=== PATIENT | female | born 2000 | race Caucasian/White ===

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

== ENCOUNTER → 2020-03-10 | Outpatient (CLI) | payer OTHER ==
--- NOTE | 2020-03-10 13:27 | US ---
EXAMINATION TYPE: Transabdominal DATE OF EXAM: 03/10/2020 12:33 PM COMPARISON: NONE CLINICAL HISTORY: Z36 confirmed dates. EXAM PERFORMED: Transabdominal (TA) EXAM MEASUREMENTS: GESTATIONAL AGE / DATING Physician Established: Not yet established Dates by LMP: (10 weeks/0 days) EDC: 10/06/2020 Dates by First Scan: No previous this is first scan Dates by Current Scan for: ( 9 weeks/3 days) EDC: 10/10/2019 MATERNAL ANATOMY Uterus: 11.3 x 5.1 x 7.5 cm Right Ovary: 2.8 x 1.9 x 1.4 cm Left Ovary: 2.6 x 2.1 x 1.3 cm Post CDS / Adnexa: wnl Presence of free fluid: No Presence of corpus luteal cyst: No Presence of subchorionic bleed: No GESTATION / SURVEY CRL: 2.5cm (9 weeks/3 days) Yolk Sac (normal less than 6mm): 3mm Heart Rate: 167 bpm Rhythm: Normal IUP: Viable IUP Date of LMP: 12/31/2019 Viable IUP, measurement consistent with dates. IMPRESSION: Viable intrauterine measuring approximately 9 weeks and 3 days with a heart rate of 167 bp m.
== END | disposition home or self-care (01) ==
LOC: RADUSWWP 12:17
PROVIDERS: ATTEND Obstetrics & Gynecology
DX: Z3A.09 9 weeks gestation of pregnancy (principal)
CPT/HCPCS: 76801

== ENCOUNTER 2020-08-17 16:14 | Outpatient (CLI) | payer OTHER ==
--- NOTE | 2020-08-17 17:55 | US ---
EXAMINATION TYPE: US OB BPP wo non-stress DATE OF EXAM: 08/17/2020 COMPARISON: US CLINICAL HISTORY: non reactive non stress test. Low Kennedy in physician's office today EXAM PERFORMED: Transabdominal (TA) BPP PARAMETERS: PRESENTATION: Vertex LIE: Longitudinal?? HEART RATE: 143 bpm RHYTHM: Normal KENNEDY: 12.9cm DIAPHRAGM IMAGED: yes BPP SCORIN. Breathin (1 episode of breathing of 30 second duration in 30 minutes of scanning time) 2. Movement: 2 (at least 3 discrete body movements in 30 minutes) 3. Tone: 2 (1 episode of active flexion/extension of limb) 4. KENNEDY: 2 (KENNEDY index > 5cm) TOTAL SCORE: 8 / 8
--- NOTE | 2020-08-25 18:43 | P.MSEPDOC ---
Presenting Problems - Arrival Data Date of Arrival on Unit: 08/17/20 Time of Arrival on Unit: 16:14 Mode of Transport: Portable Physician Notification (Pre) - Physician Notified Spoke With: cameron Denny Order Received: Yes - Notification Comment Comment: discharge home. to go to office [facility] for repeat nst with dr delaney. do kick counts daily per order and notify dr if any untoward events. verb underst. Disposition - Disposition Discharge Date: 08/17/20 Discharge Time: 18:15 I agree with the RN Medical Screening Exam: No Physician's MSE Comment: MSE not filled out. Risk & Benefit of care provided described in d/c instruction: No Diagnosis: RELATED CONDITIONS, UNSPECIFIED, THIRD TRIMESTER (Patient was sent to labor and delivery by Dr. Delaney for a nonreactive nonstress test in the office. Patient was getting a nonstress test due to a low normal KENNEDY and decreased growth. Dr. Armas requested patient, to labor and delivery for prolonged monitoring and biophysical profile. Biophysical profile is 8 out of 8. heart tones did not show any evidence of decelerations or concerning features. I did talk to the patient she states she is feeling movement and I instructed her once again in movement. Patient was felt to be stable for discharge home follow up with Dr. Armas for a nonstress test the office in 3 days. She was given strict instructions to return if she had any decreased movement or other symptomatology. )
== END 2020-08-17 18:15 | disposition home or self-care (01) ==
LOC: FBPOP 16:14
PROVIDERS: ATTEND Obstetrics & Gynecology
DX: O26.93 Pregnancy related conditions, unspecified, third trimester (principal); Z3A.00 Weeks of gestation of pregnancy not specified
CPT/HCPCS: 59025; 76819; G0463; 99213

== ENCOUNTER 2020-08-20 10:46 | Outpatient (CLI) | payer OTHER ==
--- NOTE | 2020-08-20 12:18 | US ---
EXAMINATION TYPE: US OB BPP wo non-stress DATE OF EXAM: 08/20/2020 COMPARISON: US CLINICAL HISTORY: nonreactive nst. Patient stated just had this test in [facility] office today.; ; E DD10/06/2020, 33weeks/2 days. EXAM PERFORMED: Transabdominal (TA) BPP PARAMETERS: PRESENTATION: cephalic LIE: long?? HEART RATE: 138 bpm RHYTHM: normal KENNEDY: 12.3 DIAPHRAGM IMAGED: yes, seen BPP SCORIN. Breathin (1 episode of breathing of 30 second duration in 30 minutes of scanning time) 2. Movement: 2 (at least 3 discrete body movements in 30 minutes) 3. Tone: 2 (1 episode of active flexion/extension of limb) 4. KENNEDY: 2 (KENNEDY index > 5cm) TOTAL SCORE: 8 / 8 US tech findings reported to patient's RN, Jeniffer, at exam's end. IMPRESSIONS: 1. Normal biophysical profile scoring 8/8 points. Cardiac activity measures 138 bpm was observed duri ng the study.
--- NOTE | 2020-09-16 09:41 | P.MSEPDOC ---
Presenting Problems - Arrival Data Date of Arrival on Unit: 08/20/20 Time of Arrival on Unit: 10:46 Mode of Transport: Portable Disposition - Disposition Discharge Date: 08/20/20 Discharge Time: 13:04 I agree with the RN Medical Screening Exam: Yes Risk & Benefit of care provided described in d/c instruction: Yes Diagnosis: RELATED CONDITIONS, UNSPECIFIED, THIRD TRIMESTER (IUGR with non-reactive nst)
== END 2020-08-20 13:16 | disposition home or self-care (01) ==
LOC: FBPOP 10:46
PROVIDERS: ATTEND Obstetrics & Gynecology
DX: O26.893 Other specified pregnancy related conditions, third trimester (principal)
CPT/HCPCS: 59025; 76819

== ENCOUNTER 2020-08-27 15:50 | Outpatient (CLI) | payer OTHER ==
[2020-08-27 16:27] VITALS: BP 113/73; PULSE 96; RESP 16
--- NOTE | 2020-08-28 06:15 | P.MSEPDOC ---
Presenting Problems - Arrival Data Date of Arrival on Unit: 08/27/20 Time of Arrival on Unit: 15:50 Mode of Transport: Ambulatory - Complaint OB-Reason for Admission/Chief Complaint: NST Medical History - Information : 2 Para: 1 Term: 0 : 0 Abortions: Spontaneous or Elective: 0 Number of Living Children: 0 - Gestational Age Gestational Age by TOD (wks/days): 34 Weeks and 2 Days - History Complications: Other Comment: IUGR Review of Systems - Review of Systems Constitutional: No problems Breast: No problems ENT: No problems Cardiovascular: No problems Respiratory: No problems Gastrointestinal: No problems Genitourinary: No problems Musculoskeletal: No problems Neurological: No problems Skin: No problems Vital Signs - Pulse Right Pulse Rate: 96 Pulse Assessment Method: Automatic Cuff - Respirations Respiratory Rate: 16 Oxygen Delivery Method: Room Air O2 Sat by Pulse Oximetry: 98 - Blood Pressure Right Arm Blood Pressure: 113/73 Blood Pressure Mean: 86 Blood Pressure Source: Automatic Cuff Medical Screen Scoring (Pre) - Cervical Exam Dilation: Exam Deferred Effacement: Exam Deferred - Uterine Contractions Frequency: N/A Duration: N/A Intensity: N/A - Maternal Vital Signs Maternal Temperature: N/A Maternal Blood Pressure: N/A Signs of Preeclampsia: N/A Maternal Respirations: N/A - Maternal Trauma Maternal Trauma: N/A - Assessment - Baby A Baseline FHR: 150 Heart Rate - NICHD Category: Category I (Normal) = 0 NST: Reactive Position: N/A Station: N/A - Total Score - Baby A Total Score - Baby A: 0 - Total Score - Baby B Total Score - Baby B: 0 - Total Score - Baby C Total Score - Baby C: 0 - Level of Risk - Baby A Level of Risk - Baby A: Low (0-5) - Level of Risk - Baby B Level of Risk - Baby B: Low (0-5) - Level of Risk - Baby C Level of Risk - Baby C: Low (0-5) Physician Notification (Pre) - Physician Notified Physician Notified Date: 08/27/20 Physician Notified Time: 16:19 New Order Received: Yes - Notification Comment Comment: If NST is reactive and there are no concerns, pt may DC home Disposition - Disposition OB Disposition: Discharge to home Discharge Date: 08/27/20 Discharge Time: 16:40 I agree with the RN Medical Screening Exam: Yes Risk & Benefit of care provided described in d/c instruction: Yes Diagnosis: ENCTR FOR SCREENING FOR GROWTH RETARDATION
== END 2020-08-27 16:40 | disposition home or self-care (01) ==
LOC: FBPOP 15:50
PROVIDERS: ATTEND Obstetrics & Gynecology
DX: Z36.4 Encounter for antenatal screening for fetal growth retardation (principal); Z3A.34 34 weeks gestation of pregnancy
CPT/HCPCS: 59025

== ENCOUNTER 2020-09-06 15:52 | Outpatient (CLI) | payer OTHER ==
--- NOTE | 2020-09-06 16:55 | P.PN ---
Progress Note - Text Progress Note Date: 09/06/20 Patient was sent over from the office due to nonreactive NST. In labor and delivery her NST became reactive following monitoring and a biophysical profile was also 8 out of 8. She will be discharged home in stable condition. She has an appointment on 09/10/2020 with maternal- medicine. She is scheduled for induction next and will see me on Sunday for exam.
--- NOTE | 2020-09-06 19:17 | US ---
EXAMINATION TYPE: US OB BPP wo non-stress DATE OF EXAM: 09/06/2020 COMPARISON: NONE CLINICAL HISTORY: DECREASED MOVEMENT. failed non stress test at office EXAM PERFORMED: Transabdominal (TA) BPP PARAMETERS: PRESENTATION: Vertex LIE: Longitudinal?? HEART RATE: 149 bpm RHYTHM: Normal KENNEDY: 14.1cm DIAPHRAGM IMAGED: yes BPP SCORIN. Breathin (1 episode of breathing of 30 second duration in 30 minutes of scanning time) 2. Movement: 2 (at least 3 discrete body movements in 30 minutes) 3. Tone: 2 (1 episode of active flexion/extension of limb) 4. KENNEDY: 2 (KENNEDY index > 5cm) TOTAL SCORE: 8 / 8 Impression Normal exam. Biophysical profile score is 8.
== END 2020-09-06 16:55 | disposition home or self-care (01) ==
LOC: FBPOP 15:52
PROVIDERS: ATTEND Obstetrics & Gynecology
DX: O36.8130 Decreased fetal movements, third trimester, not applicable or unspecified (principal)
CPT/HCPCS: 59025; 76819

== ENCOUNTER 2020-09-14 16:04 | Inpatient (IN) | payer OTHER ==
--- NOTE | 2020-08-20 13:35 | P.PN ---
Progress Note - Text Progress Note Date: 08/20/20 Was sent over to labor and delivery from my office for nonreactive NST. We have been concerned over last week due to an ultrasound showing possible small for gestational age versus IUGR baby. NST and biophysical profile were okay on Sunday following a nonreactive NST my office. However again this morning her NST was nonreactive this was sent over to labor and delivery. In labor and delivery she has a reassuring but not reactive NST with biophysical profile of 8 out of 8 again. This said, I spoke with maternal- medicine and after discussing her case with the specialist, we have opted to have her go see them today. My concern predominantly is that her last ultrasound showed possible IUGR and with 2 straight nonreactive NSTs even with normal biophysical profiles I believe she needs further workup to verify that there is nothing else concerning going on with the . As she is only 33 weeks she would need to be delivered at a high risk Center should that be required anyway. We'll follow the recommendations moving forward. I did personally evaluate Charlotte in L&D and discuss her care with she and her partner with all questions being asked prior to d/c
[2020-09-14] MEDS ORDERED: DINOPROSTONE 10 MG INSERT.ER VAGINAL ONE (16:08)
[2020-09-14] MEDS ORDERED: BUTORPHANOL 1 MG/ML 1 ML VIAL IV PRN (16:49)
[2020-09-14] MEDS ORDERED: ZOLPIDEM 5 MG TAB PO PRN (16:49)
--- NOTE | 2020-09-14 16:56 | P.HPOB ---
History of Present Illness H&P Date: 09/14/20 Chief Complaint: Intrauterine at term: IUGR Charlotte is a 20-year-old at 37 weeks gestation who arrives for induction of labor. Her Precis course has been, complicated by intrauterine growth restriction for which she is been seen and comanagement with maternal- medicine. She's had twice weekly nonstress tests and biophysical profiles throughout the latter port of the and we have monitored very closely. Her last ultrasound had the baby in the first or 2nd percentile. Much of the problem however is femur length so it is going to be a question as to whether or not this is truly IUGR there is some other anatomical issue with the baby. We have seen her very closely since 8 weeks gestation she is had very close care otherwise. She's had multiple ultrasounds and good dates noted by early ultrasound. Pertinent labs do include A+ blood type, Rh antibody was negative, rubella is immune, hepatitis B surface antigen and RPR both negative group B strep is however positive. Risks of Cervidil ripening were discussed with the patient and her significant other including but not limited to potential emergency room with tachysystole and possible need for urgent or emergent section. She is also aware that should this not work we will need to discuss what alternatives we have moving forward to getting her delivered. She does have a narrow pubic arch so I do have some concerns over her ability to deliver vaginally anyway, but with baby in the percentile we would expect that she would still be able to hopefully deliver vaginally. A category 1 tracing is noted and exam was performed with her cervix noted to be fingertip 50% effaced - 3 station with the cervix being very posterior. Past Medical History Past Medical History: No Reported History Additional Past Medical History / Comment(s): Anemia History of Any Multi-Drug Resistant Organisms: None Reported Past Surgical History: No Surgical Hx Reported Smoking Status: Former smoker Medications and Allergies Home Medications Medication Instructions Recorded Confirmed Type Pnv No.95/Ferrous Fum/Folic AC 1 tab PO DAILY 08/17/20 09/14/20 History [ Multivitamin Tablet] Allergies Allergy/AdvReac Type Severity Reaction Status Date / Time kiwi Allergy Unknown Verified 09/06/20 16:07 Exam Osteopathic Statement: *. No significant issues noted on an osteopathic structural exam other than those noted in the History and Physical/Consult. Intake and Output 09/14/20 09/14/20 09/14/20 06:59 14:59 22:59 Other: Weight 81.647 kg - OBG Physical Exam Breast: both: normal (no masses) Abdomen: bowel sounds normal, no diffuse tenderness, no bruit present, no guarding noted, no hepatomegaly, no splenomegaly, no mass Vulva: both: normal Vagina: normal moisture, no discharge Cervix: no lesion, no discharge Uterus: normal size, normal contour Adnexa: both: normal Anus/Rectum: normal perianal skin, no rectal mass, no hemorrhoids, heme negative
[2020-09-15] MEDS ORDERED: TERBUTALINE 1 MG/ML VIAL SQ PRN (05:01)
[2020-09-15] MEDS ORDERED: CARBOPROST TROMETHAMINE 250 MCG/ML 1 ML AMP IM PRN (05:01)
[2020-09-15] MEDS ORDERED: AMPICILLIN 2,000 MG in SODIUM CHLORIDE 0.9% 100 ML IVPB STA (05:01)
[2020-09-15] MEDS ORDERED: OXYTOCIN 10 UNIT/ML 1 ML VIAL IM PRN (05:01)
[2020-09-15] MEDS ORDERED: LIDOCAINE 0.5% (PF) 5 MG/ML (50 ML SDV) SQ PRN (05:01)
[2020-09-15] MEDS ORDERED: METHYLERGONOVINE 0.2 MG/ML 1 ML AMP IM PRN (05:01)
[2020-09-15] MEDS ORDERED: OXYTOCIN 30 UNITS/500 ML NS 30 UNIT in SALINE 1 500ML.BAG IV SCH (05:15)
[2020-09-15] MEDS: LACTATED RINGERS 1,000 ML IV SCH ×2 (05:18→18:48)
[2020-09-15 05:42] LABS: Basophils % (A) 0 %; Eosinophils # (A) 0.1 k/uL (0-0.7); Eosinophils % (A) 1 %; HCT 39.5 % (34.0-46.0); HGB 13.7 gm/dL (11.4-16.0); Lymphocytes # (A) 1.2 k/uL (1.0-4.8); Lymphocytes % (A) 11 %; MCH 31.9 pg (25.0-35.0); MCHC 34.7 g/dL (31.0-37.0); MCV 91.9 fL (80.0-100.0); Mean Platelet Volume 7.5; Monocytes # (A) 0.5 k/uL (0-1.0); Monocytes % (A) 4 %; Neutrophils # (A) 9.2 k/uL (1.3-7.7); Neutrophils % (A) 82 %; Platelet Count 228 k/uL (150-450); RBC 4.29 m/uL (3.80-5.40); RDW 12.6 % (11.5-15.5); WBC 11.2 k/uL (3.8-10.6)
[2020-09-15] MEDS ORDERED: ROPIVACAINE 5MG/ML 20ML VIAL ONE (06:59)
[2020-09-15] MEDS ORDERED: fentaNYL (PF) 50 MCG/ML 5 ML AMP ONE (06:59)
[2020-09-15] MEDS ORDERED: SODIUM CHLORIDE 0.9% 100 ML BAG ONE (06:59)
[2020-09-15] MEDS ORDERED: ROPIVACAINE 100 MG, fentaNYL (PF) 200 MCG in SODIUM CHLORIDE 0.9% 76 ML EPIDURAL ONE (07:24)
[2020-09-15] MEDS ORDERED: MIDAZOLAM 2 MG/2 ML VIAL ONE (08:30)
[2020-09-15] MEDS ORDERED: fentaNYL (PF) 50 MCG/ML 2 ML AMP ONE (08:30)
[2020-09-15] MEDS ORDERED: PROPOFOL 10 MG/ML 20 ML VIAL IV ONE (08:30)
[2020-09-15] MEDS ORDERED: AMPICILLIN 1,000 MG in SODIUM CHLORIDE 0.9% 50 ML IVPB SCH (09:01)
--- NOTE | 2020-09-15 09:09 | P.PROBDLV ---
Vaginal Delivery Note - . Vaginal Delivery Note: Patient progressed complete and pushing with vacuum assisted vaginal delivery of a viable male over an intact perineum. During the pushing process and slightly before the pushing process the baby's heart tones were dropping into the 50s and staying between 50s and 60s for long segments of time between some of contractions heart rate would return but it was going above the baseline into the 150s and 160s due to her epidural and due to the fact she did not have baby before and her pushing while effective was not bring the baby down quick enough after a discussion of risks that was somewhat truncated due to heart rate being again in the 40s to 50s at that point we did apply vacuum it was pumped up to the minimum green and was placed in the occipital posterior area on the top of the head and with gentle traction real bring the baby down to the perineum on the first hole there was one pop off at that point we've been following for less than 20 seconds. Packing was reapplied and in less than 7 seconds with her next contraction and pushing the baby was delivered immediately the baby began to cry bulb suction mouth and nares was performed and there was good vigorous tone. Baby was placed mother's abdomen and the umbilical cord was allowed to pulsate for 60 seconds prior to clamping and cutting. Once this was completed nursery personnel was present and assumed care. Placenta was then delivered intact. Pitocin was added to the IV. A bilateral vaginal wall periurethral left avulsion's were note despite this we're noting a significant amount of blood and so a more thorough exam was done and there was a large 6 cm long by 2 cm deep laceration starting from the right lateral wall moving all the way back to just anterior to the cervix. Attempt to repair this laceration. Bedside was done but it was simply too deep to get to the apex of the laceration therefore she was taken to the operating room with an epidural for analgesia and the repair was effected. Please see that dictation separately. scores were 9 and 9 at one and 5 minutes F[place] and the weight was 4 pounds 5.7 ounces. It was taken to nursery due to small size and not holding temperatures well
--- NOTE | 2020-09-15 09:11 | P.OP ---
Date of Procedure: 09/15/20 Preoperative Diagnosis: Vaginal wall laceration following delivery Postoperative Diagnosis: Same Procedure(s) Performed: Exam under anesthesia with repair of laceration Anesthesia: epidural Surgeon: Lauri Delaney Estimated Blood Loss (ml): 20 Pathology: none sent Condition: stable Disposition: floor Description of Procedure: Patient was taken to the operating suite where the vaginal packing from the room was removed and she was prepped and draped in normal sterile fashion. Using a 90 angle to retract the left vaginal sidewall and we were able to with gentle palpation fine apex of the laceration and grasped with an Allis clamp. Allis clamp was also rest on the right side of the laceration and once this was accomplished 3-0 Vicryl was used to close the laceration in running locking fashion. Once the laceration of approximately 3 inches long by 1 inch deep was repaired bleeding was noted to be minimal at this point despite having relatively heavy bleeding prior to repair. Skin was then reapproximated in that area with 3-0 Vicryl subcuticularly. Once this was completed all incidents removed. Sponge, lap, needle counts were all correct 2. Patient was then taken to the recovery room in stable and satisfactory condition.
[2020-09-15 10:08] VITALS: RESP 16
[2020-09-15] MEDS ORDERED: HYDROCORTISONE 2.5% RECTAL CREAM 30 GM TUBE RECTAL PRN (10:15)
[2020-09-15] MEDS ORDERED: diphenhydrAMINE 25 MG CAP PO PRN (10:15)
[2020-09-15] MEDS ORDERED: LANOLIN CREAM 5 GM TUBE TOPICAL PRN (10:15)
[2020-09-15] MEDS ORDERED: SIMETHICONE 80 MG CHEWABLE PO PRN (10:15)
[2020-09-15] MEDS ORDERED: OXYTOCIN 20 UNITS/1000 ML NS 1,000 ML IV SCH (10:15)
[2020-09-15] MEDS ORDERED: ZOLPIDEM 5 MG TAB PO PRN (10:15)
[2020-09-15] MEDS ORDERED: diphenhydrAMINE 50 MG CAP PO PRN (10:15)
[2020-09-15] MEDS ORDERED: BENZOCAINE/MENTHOL SPRAY 1 GM/SPRAY AEROSOL TOPICAL PRN (10:15)
[2020-09-15] MEDS ORDERED: diphenhydrAMINE 50 MG/ML 1 ML VIAL IVP PRN ×2 (10:15)
[2020-09-15] MEDS: IBUPROFEN 600 MG TAB PO PRN ×2 (12:34→18:19)
[2020-09-15] MEDS: SENNOSIDES-DOCUSATE SODIUM 1 EACH TAB PO SCH (19:30)
[2020-09-16] MEDS: IBUPROFEN 600 MG TAB PO PRN ×4 (00:37→23:19)
[2020-09-16 06:06] LABS: Basophils % (A) 0 %; Eosinophils # (A) 0.2 k/uL (0-0.7); Eosinophils % (A) 2 %; HCT 31.3 % (34.0-46.0); Lymphocytes # (A) 2.7 k/uL (1.0-4.8); Lymphocytes % (A) 25 %; MCH 30.9 pg (25.0-35.0); MCHC 33.5 g/dL (31.0-37.0); MCV 92.1 fL (80.0-100.0); Mean Platelet Volume 7.6; Monocytes # (A) 0.6 k/uL (0-1.0); Monocytes % (A) 5 %; Neutrophils # (A) 7.2 k/uL (1.3-7.7); Neutrophils % (A) 66 %; Platelet Count 225 k/uL (150-450); RDW 13.4 % (11.5-15.5); WBC 10.9 k/uL (3.8-10.6)
[2020-09-16 06:07] LABS: HGB 10.5 gm/dL (11.4-16.0)
[2020-09-16] MEDS: SENNOSIDES-DOCUSATE SODIUM 1 EACH TAB PO SCH ×2 (08:45→19:54)
--- NOTE | 2020-09-16 10:02 | P.PNOBGVD ---
Subjective - Subjective Principal diagnosis: day 1 Interval history: Overall doing well. She is sore in her buttock and vaginal area from the repair yesterday but otherwise she is doing well. She reports her lochia is light. Her appetite is good she is ambulating and voiding and otherwise voices no complaints. Patient reports: Reports appetite normal, Reports voiding normally, Reports pain well controlled, Reports ambulating normally [place]: in NICU Objective - Latest Vital Signs Latest vital signs: Vital Signs Temp Pulse Resp BP Pulse Ox 09/16/20 09:27 97.9 F 85 16 109/66 09/16/20 08:00 97.8 F 85 16 108/73 09/16/20 04:00 98.8 F 82 16 94/52 09/15/20 23:39 98.2 F 85 16 107/74 98 09/15/20 20:00 98.0 F 81 16 114/77 99 09/15/20 16:00 98.0 F 100 16 128/72 09/15/20 12:00 98.3 F 72 16 131/79 09/15/20 10:18 98.3 F 72 16 128/76 Intake and Output 09/15/20 09/16/20 09/16/20 22:59 06:59 14:59 Other: # Voids 2 2 1 # Bowel Movements 1 - Exam Lungs: bilateral: normal Chest: Normal S1, Normal S2 Extremities: Present: normal Abdomen: Present: normal appearance, soft Uterus: Present: normal, firm - Labs Labs: Abnormal Lab Results - Last 24 Hours (Table) 09/16/20 Range/Units 05:27 WBC 10.9 H (3.8-10.6) k/uL RBC 3.40 L (3.80-5.40) m/uL Hgb 10.5 L D (11.4-16.0) gm/dL Hct 31.3 L (34.0-46.0) %
[2020-09-16] MEDS: ACETAMINOPHEN TAB 325 MG TAB PO PRN ×2 (13:28→19:51)
[2020-09-17] MEDS: IBUPROFEN 600 MG TAB PO PRN (07:19)
[2020-09-17 08:35] VITALS: BP 108/65; PULSE 71; TEMP 98
--- NOTE | 2020-09-17 09:01 | P.DS ---
Providers Date of admission: 09/14/20 16:04 Expected date of discharge: 09/17/20 Attending physician: Lauri Delaney Primary care physician: [facility] Course: Charlotte is doing very well day 2. She is ambulating well. She is tolerating her diet, voicing no complaints and is having no problems with. Her vital signs are stable and she is afebrile. Baby is still in special care nursery but we will plan to discharge her to home today. Prescription for Motrin was forwarded to the pharmacy. All other questions are answered for her prior to her discharge. On physical exam heart is regular, lungs are clear, ext remities are without pain. Abdomen is soft uterus is firm and lochia is reported to be light. She is doing well otherwise overall. Discharge instructions were thoroughly reviewed and all questions were answered for her prior to proceeding with the discharge. Patient Condition at Discharge: Good Plan - Discharge Summary New Discharge Prescriptions: New Ibuprofen [Motrin] 600 mg PO Q6HR PRN #30 tab PRN Reason: Pain No Action Pnv No.95/Ferrous Fum/Folic AC [ Multivitamin Tablet] 1 tab PO DAILY Discharge Medication List Pnv No.95/Ferrous Fum/Folic AC [ Multivitamin Tablet] 1 tab PO DAILY 08/17/20 [History] Ibuprofen [Motrin] 600 mg PO Q6HR PRN #30 tab 09/17/20 [Rx] Follow up Appointment(s)/Referral(s): Lauri Delaney DO [Doctor of Osteopathic Medicine] - 6 Weeks Activity/Diet/Wound Care/Special Instructions: Ting, limit stairs and driving, and pelvic rest. If any high temperatures, heavy bleeding, or severe pain call my office Discharge Disposition: HOME SELF-CARE
[2020-09-17] MEDS: ACETAMINOPHEN TAB 325 MG TAB PO PRN (09:46)
== END 2020-09-17 13:20 | disposition home or self-care (01) | DRG 806 ==
LOC: 4FBP 16:04
PROVIDERS: ADMIT Obstetrics & Gynecology; ATTEND Obstetrics & Gynecology
DX: O36.5930 Maternal care for other known or suspected poor fetal growth, third trimester, not applicable or unspecified (principal); O71.4 Obstetric high vaginal laceration alone; Z37.0 Single live birth; O76 Abnormality in fetal heart rate and rhythm complicating labor and delivery; O71.82 Other specified trauma to perineum and vulva; O99.824 Streptococcus B carrier state complicating childbirth; Z87.891 Personal history of nicotine dependence; Z3A.37 37 weeks gestation of pregnancy; Z79.899 Other long term (current) drug therapy; Z86.2 Personal history of diseases of the blood and blood-forming organs and certain disorders involving the immune mechanism; Z91.018 Allergy to other foods
CPT/HCPCS: 85025; 86850; 86900; 86901

== ENCOUNTER 2020-12-13 15:02 | Emergency (ER) | payer OTHER ==
[2020-12-13 15:07] VITALS: RESP 18; TEMP 98.1
[2020-12-13 15:47] LABS: Bacteria,Urine Many /hpf; Budding Yeast,Urine Many /hpf; Mucus,Urine Many /hpf; RBC,Urine >182 /hpf (0-5); Squamous Epithelial Cell,Urine 16 /hpf (0-4); WBC,Urine >182 /hpf (0-5)
[2020-12-13 15:48] LABS: Appearance,Urine Bloody (Clear)
[2020-12-13 15:49] LABS: Color,Urine Red
--- NOTE | 2020-12-13 16:15 | ED ---
Female Urogenital HPI - General Chief complaint: Urogenital Stated complaint: UTI,Fever Time Seen by Provider: 12/13/20 15:11 Source: patient Limitations: no limitations - History of Present Illness Initial comments: Patient is a 20-year-old female presenting to the emergency Department with concerns of a UTI. Patient states she noticed hematuria, dysuria an increase in frequency since last week. She states she's had low-grade fevers throughout the week. She does admit to suprapubic pressure, discomfort. She denies any nausea or vomiting, no chest pain or shortness of breath. She states she's had no fevers today. She states she's had an issue with a UTI in October, it was cleared up and then symptoms returned last week. She denies being . She has no further complaints at this time. - Related Data Home Medications Medication Instructions Recorded Confirmed Acetaminophen Tab [Tylenol Tab] 1,000 mg PO Q6HR PRN 12/13/20 12/13/20 Previous Rx's Medication Instructions Recorded Sulfamethox-Tmp 800-160Mg [Bactrim 1 each PO Q12HR 5 Days #10 tab 12/13/20 Ds] Allergies Allergy/AdvReac Type Severity Reaction Status Date / Time cephalexin [From Keflex] Allergy Rash/Hives Verified 12/13/20 16:08 kiwi Allergy Unknown Verified 12/13/20 16:08 Review of Systems ROS Statement: Those systems with pertinent positive or pertinent negative responses have been documented in the HPI. ROS Other: All systems not noted in ROS Statement are negative. Past Medical History Past Medical History: No Reported History Additional Past Medical History / Comment(s): Anemia History of Any Multi-Drug Resistant Organisms: None Reported Past Surgical History: No Surgical Hx Reported Past Anesthesia/Blood Transfusion Reactions: No Reported Reaction Past Psychological History: No Psychological Hx Reported Smoking Status: Former smoker Past Alcohol Use History: Occasional Past Drug Use History: Marijuana - Past Family History Mother Family Medical History: No Reported History General Exam - General Exam Comments Initial Comments: GENERAL: Patient is well-developed and well-nourished. Patient is nontoxic and in no acute distress. HEAD: Atraumatic, normocephalic. EYES: Pupils equal round and reactive to light, extraocular movements intact, sclera anicteric, conjunctiva are normal. Eyelids were unremarkable. ENT: TMs normal, nares patent, oropharynx clear without exudates. Moist mucous membranes. NECK: Normal range of motion, supple without lymphadenopathy or JVD. LUNGS: Unlabored respirations. Breath sounds clear to auscultation bilaterally and equ al. No wheezes rales or rhonchi. HEART: Regular rate and rhythm without murmurs, rubs or gallops. ABDOMEN: Soft, tender to palpation suprapubic region, no other areas of pain, normoactive bowel sounds. No guarding, no rebound. No masses appreciated. : Deferred MUSCULOSKELETAL: Normal extremities with adequate strength and normal range of motion, no pitting or edema. No clubbing or cyanosis. NEUROLOGICAL: Patient is alert and oriented x 3. Motor and sensory are also intact. Cranial nerves II through XII grossly intact. Symmetrical smile. Normal speech, normal gait. PSYCH: Normal mood, normal affect. SKIN: Warm, Dry, normal turgor, no rashes or lesions noted. Limitations: no limitations Course Vital Signs 12/13/20 12/13/20 15:04 16:32 Temperature 98.1 F Pulse Rate 120 H 96 Respiratory 18 18 Rate Blood Pressure 113/70 123/74 O2 Sat by Pulse 99 98 Oximetry Medical Decision Making - Medical Decision Making Patient is a 20-year-old female here with UTI-type symptoms since last week. Hematuria, dysuria, frequency. Low-grade temperature over the past few days, she is afebrile here today. Urine is significant for hematuria, many wbc's and bacteria. Urine hCG is not detected. I will place her on Bactrim, as she has an ALLERGY to Keflex and states that she did not do well with Cipro in the past. Also recommended plenty of fluids, Pyridium for symptoms. She is in agreement with this plan of care, she is stable for discharge. Return parameters were discussed with the patient she verbalized understanding. Case discused with Dr. curtis. - Lab Data Lab Results 12/13/20 12/13/20 Range/Units 15:29 15:29 Urine Color Red Urine Appearance Bloody H (Clear) Urine RBC >182 H (0-5) /hpf Urine WBC >182 H (0-5) /hpf Ur Squamous Epith Cells 16 H (0-4) /hpf Urine Bacteria Many H (None) /hpf Urine Mucus Many H (None) /hpf Urine Yeast (Budding) Many H (None) /hpf Urine HCG, Qual Not Detected (Not Detectd) Disposition Clinical Impression: Urinary tract infection Disposition: HOME SELF-CARE Condition: Stable Instructions (If sedation given, give patient instructions): Urinary Tract Infection in Women (ED) Additional Instructions: Please return to the Emergency Department if symptoms worsen or any other concerns. Continue with oral antibiotics as prescribed. Be sure to drink plenty of water. May use peridium for discomfort. Follow-up with your regular doctor. Prescriptions: Sulfamethox-Tmp 800-160Mg [Bactrim Ds] 1 each PO Q12HR 5 Days #10 tab Is patient prescribed a controlled substance at d/c from ED?: No Referrals: Kathe Lam MD [Primary Care Provider] - 1-2 days
[2020-12-13 16:34] VITALS: BP 123/74; PULSE 96
== END 2020-12-13 16:36 | disposition home or self-care (01) ==
LOC: EC 15:02
DX: N39.0 Urinary tract infection, site not specified (principal); Z87.891 Personal history of nicotine dependence
CPT/HCPCS: 81025; 87086; 96374; 99283; 99285

== ENCOUNTER → 2021-03-31 | Outpatient (CLI) | payer OTHER ==
--- NOTE | 2021-03-31 15:15 | US ---
EXAMINATION TYPE: US kidneys/renal and bladder DATE OF EXAM: 03/31/2021 COMPARISON: NONE CLINICAL HISTORY: N39.0 Urinary Tract Infection. UTI EXAM MEASUREMENTS: Right Kidney: 8.8 x 3.5 x 4.0 cm Left Kidney: 9.5 x 3.9 x 3.4 cm Right Kidney: No hydronephrosis or renal calculi seen Left Kidney: No hydronephrosis or no calculi seen Bladder: wnl Bilateral Jets seen: Yes There is no evidence for hydronephrosis at this point in time. No nephrolithiasis is seen. The uri nary bladder is anechoic. Bilateral ureteral jets are seen. IMPRESSION: No evidence of hydronephrosis or renal calculi.
== END | disposition home or self-care (01) ==
LOC: RADUSWWP 14:27
PROVIDERS: ATTEND Internal Medicine
DX: N39.0 Urinary tract infection, site not specified (principal)
CPT/HCPCS: 76770

== ENCOUNTER 2021-05-27 03:04 | Emergency (ER) | payer OTHER ==
[2021-05-27 03:11] VITALS: RESP 20; TEMP 98.3
[2021-05-27 03:55] LABS: Basophils % (A) 0 %; Eosinophils # (A) 0.3 k/uL (0-0.7); Eosinophils % (A) 4 %; HGB 13.7 gm/dL (11.4-16.0); Lymphocytes # (A) 2.8 k/uL (1.0-4.8); Lymphocytes % (A) 36 %; MCH 29.5 pg (25.0-35.0); MCHC 33.5 g/dL (31.0-37.0); MCV 88.2 fL (80.0-100.0); Mean Platelet Volume 7.8; Monocytes # (A) 0.4 k/uL (0-1.0); Monocytes % (A) 5 %; Neutrophils # (A) 4.1 k/uL (1.3-7.7); Neutrophils % (A) 53 %; Platelet Count 252 k/uL (150-450); RBC 4.65 m/uL (3.80-5.40); RDW 12.9 % (11.5-15.5); WBC 7.9 k/uL (3.8-10.6)
[2021-05-27 04:02] LABS: Amorphous Sediment,Urine Rare /hpf; Appearance,Urine Turbid (Clear); Bacteria,Urine Few /hpf; Bilirubin,Urine Negative (Negative); Blood,Urine Large (Negative); Color,Urine Yellow; Glucose,Urine (UA) Negative (Negative); Ketones,Urine Negative (Negative); Leukocyte Esterase,Urine Large (Negative); Mucus,Urine Occasional /hpf; Nitrite,Urine Negative (Negative); PH, Urine 5.5 (5.0-8.0); Protein,Urine Trace (Negative); RBC,Urine 27 /hpf (0-5); Specific Gravity,Urine 1.024 (1.001-1.035); Squamous Epithelial Cell,Urine 21 /hpf (0-4); Urobilinogen,Urine <2.0 mg/dL (<2.0); WBC,Urine 13 /hpf (0-5)
[2021-05-27 04:12] LABS: ALT 12 U/L (4-34); AST 19 U/L (14-36); African American GFR (CKD) >90 (>60 ml/min/1.73 sqM); Albumin 4.6 g/dL (3.5-5.0); Alkaline Phosphatase 70 U/L (38-126); Amylase 58 U/L (30-110); Anion Gap 9 mmol/L; Blood Urea Nitrogen 17 mg/dL (7-17); C Reactive Protein 1.5 mg/dL (<1.0); Calcium 9.8 mg/dL (8.4-10.2); Carbon Dioxide 26 mmol/L (22-30); Chloride 101 mmol/L (98-107); Glucose 107 mg/dL (74-99); Lipase 79 U/L (23-300); Non-African American GFR(CKD) >90 (>60 ml/min/1.73 sqM); Potassium 3.9 mmol/L (3.5-5.1); Sodium 136 mmol/L (137-145); Total Bilirubin 0.3 mg/dL (0.2-1.3); Total Protein 7.7 g/dL (6.3-8.2)
--- NOTE | 2021-05-27 04:42 | ED ---
Abdominal Pain HPI - General Chief Complaint: Abdominal Pain Stated Complaint: Abd Pain Time Seen by Provider: 05/27/21 03:27 Source: patient Mode of arrival: ambulatory Limitations: no limitations - History of Present Illness MD Complaint: abdominal pain Onset/Timin -: days(s) Location: RLQ Radiation: none Migration to: no migration Severity: moderate Quality: aching Consistency: constant Improves With: nothing Worsens With: nothing Associated Symptoms: nausea - Related Data Home Medications Medication Instructions Recorded Confirmed Acetaminophen Tab [Tylenol Tab] 1,000 mg PO Q6HR PRN 12/13/20 12/13/20 Previous Rx's Medication Instructions Recorded Sulfamethox-Tmp 800-160Mg [Bactrim 1 each PO Q12HR 5 Days #10 tab 12/13/20 Ds] Sulfamethox-Tmp 800-160Mg [Bactrim 1 each PO Q12HR #10 tab 05/27/21 Ds] Allergies Allergy/AdvReac Type Severity Reaction Status Date / Time cephalexin [From Keflex] Allergy Rash/Hives Verified 05/27/21 03:11 kiwi Allergy Unknown Verified 05/27/21 03:11 Review of Systems ROS Statement: Those systems with pertinent positive or pertinent negative responses have been documented in the HPI. ROS Other: All systems not noted in ROS Statement are negative. Constitutional: Denies: fever, chills Respiratory: Denies: cough, dyspnea Cardiovascular: Denies: chest pain, palpitations Gastrointestinal: Reports: abdominal pain, nausea. Denies: vomiting, diarrhea, constipation Genitourinary: Denies: dysuria, frequency, hematuria, abnormal menses Musculoskeletal: Denies: back pain Skin: Denies: rash Neurological: Denies: headache Past Medical History Past Medical History: No Reported History Additional Past Medical History / Comment(s): Anemia History of Any Multi-Drug Resistant Organisms: None Reported Past Surgical History: No Surgical Hx Reported Past Anesthesia/Blood Transfusion Reactions: No Reported Reaction Past Psychological History: No Psychological Hx Reported Smoking Status: Former smoker Past Alcohol Use History: Occasional Past Drug Use History: Marijuana - Past Family History Mother Family Medical History: No Reported History General Exam Limitations: no limitations General appearance: alert, in no apparent distress Head exam: Present: atraumatic, normocephalic Eye exam: Present: normal appearance. Absent: scleral icterus, conjunctival injection Neck exam: Present: normal inspection Respiratory exam: Present: normal lung sounds bilaterally. Absent: respiratory distress, wheezes, rales, rhonchi, stridor Cardiovascular Exam: Present: regular rate, normal rhythm, normal heart sounds. Absent: systolic murmur, diastolic murmur, rubs, gallop GI/Abdominal exam: Present: soft. Absent: distended, tenderness, guarding, rebound, rigid, mass Extremities exam: Present: normal inspection, normal capillary refill. Absent: pedal edema, calf tenderness Back exam: Present: normal inspection. Absent: CVA tenderness (R), CVA tenderness (L) Neurological exam: Present: alert Skin exam: Present: warm, dry, intact, normal color. Absent: rash Course Vital Signs 05/27/21 05/27/21 05/27/21 03:06 04:11 05:33 Temperature 98.3 F Pulse Rate 73 57 L 64 Respiratory 20 20 20 Rate Blood Pressure 127/84 120/77 121/83 O2 Sat by Pulse 98 99 99 Oximetry Medical Decision Making - Lab Data Result diagrams: 05/27/21 03:41 05/27/21 03:41 Lab Results 05/27/21 05/27/21 05/27/21 Range/Units 03:41 03:41 03:41 WBC 7.9 (3.8-10.6) k/uL RBC 4.65 (3.80-5.40) m/uL Hgb 13.7 (11.4-16.0) gm/dL Hct 41.0 (34.0-46.0) % MCV 88.2 (80.0-100.0) fL MCH 29.5 (25.0-35.0) pg MCHC 33.5 (31.0-37.0) g/dL RDW 12.9 (11.5-15.5) % Plt Count 252 (150-450) k/uL MPV 7.8 Neutrophils % 53 % Lymphocytes % 36 % Monocytes % 5 % Eosinophils % 4 % Basophils % 0 % Neutrophils # 4.1 (1.3-7.7) k/uL Lymphocytes # 2.8 (1.0-4.8) k/uL Monocytes # 0.4 (0-1.0) k/uL Eosinophils # 0.3 (0-0.7) k/uL Basophils # 0.0 (0-0.2) k/uL Sodium 136 L (137-145) mmol/L Potassium 3.9 (3.5-5.1) mmol/L Chloride 101 (98-107) mmol/L Carbon Dioxide 26 (22-30) mmol/L Anion Gap 9 mmol/L BUN 17 (7-17) mg/dL Creatinine 0.78 (0.52-1.04) mg/dL Est GFR (CKD-EPI)AfAm >90 (>60 ml/min/1.73 sqM) Est GFR (CKD-EPI)NonAf >90 (>60 ml/min/1.73 sqM) Glucose 107 H (74-99) mg/dL Calcium 9.8 (8.4-10.2) mg/dL Total Bilirubin 0.3 (0.2-1.3) mg/dL AST 19 (14-36) U/L ALT 12 (4-34) U/L Alkaline Phosphatase 70 (38-126) U/L C-Reactive Protein 1.5 H (<1.0) mg/dL Total Protein 7.7 (6.3-8.2) g/dL Albumin 4.6 (3.5-5.0) g/dL Amylase 58 (30-110) U/L Lipase 79 (23-300) U/L Urine Color Yellow Urine Appearance Turbid H (Clear) Urine pH 5.5 (5.0-8.0) Ur Specific Gardiner 1.024 (1.001-1.035) Urine Protein Trace H (Negative) Urine Glucose (UA) Negative (Negative) Urine Ketones Negative (Negative) Urine Blood Large H (Negative) Urine Nitrite Negative (Negative) Urine Bilirubin Negative (Negative) Urine Urobilinogen <2.0 (<2.0) mg/dL Ur Leukocyte Esterase Large H (Negative) Urine RBC 27 H (0-5) /hpf Urine WBC 13 H (0-5) /hpf Ur Squamous Epith Cells 21 H (0-4) /hpf Amorphous Sediment Rare H (None) /hpf Urine Bacteria Few H (None) /hpf Urine Mucus Occasional H (None) /hpf Urine HCG, Qual (Not Detectd) 05/27/21 Range/Units 03:41 WBC (3.8-10.6) k/uL RBC (3.80-5.40) m/uL Hgb (11.4-16.0) gm/dL Hct (34.0-46.0) % MCV (80.0-100.0) fL MCH (25.0-35.0) pg MCHC (31.0-37.0) g/dL RDW (11.5-15.5) % Plt Count (150-450) k/uL MPV Neutrophils % % Lymphocytes % % Monocytes % % Eosinophils % % Basophils % % Neutrophils # (1.3-7.7) k/uL Lymphocytes # (1.0-4.8) k/uL Monocytes # (0-1.0) k/uL Eosinophils # (0-0.7) k/uL Basophils # (0-0.2) k/uL Sodium (137-145) mmol/L Potassium (3.5-5.1) mmol/L Chloride (98-107) mmol/L Carbon Dioxide (22-30) mmol/L Anion Gap mmol/L BUN (7-17) mg/dL Creatinine (0.52-1.04) mg/dL Est GFR (CKD-EPI)AfAm (>60 ml/min/1.73 sqM) Est GFR (CKD-EPI)NonAf (>60 ml/min/1.73 sqM) Glucose (74-99) mg/dL Calcium (8.4-10.2) mg/dL Total Bilirubin (0.2-1.3) mg/dL AST (14-36) U/L ALT (4-34) U/L Alkaline Phosphatase (38-126) U/L C-Reactive Protein (<1.0) mg/dL Total Protein (6.3-8.2) g/dL Albumin (3.5-5.0) g/dL Amylase (30-110) U/L Lipase (23-300) U/L Urine Color Urine Appearance (Clear) Urine pH (5.0-8.0) Ur Specific Gardiner (1.001-1.035) Urine Protein (Negative) Urine Glucose (UA) (Negative) Urine Ketones (Negative) Urine Blood (Negative) Urine Nitrite (Negative) Urine Bilirubin (Negative) Urine Urobilinogen (<2.0) mg/dL Ur Leukocyte Esterase (Negative) Urine RBC (0-5) /hpf Urine WBC (0-5) /hpf Ur Squamous Epith Cells (0-4) /hpf Amorphous Sediment (None) /hpf Urine Bacteria (None) /hpf Urine Mucus (None) /hpf Urine HCG, Qual Not Detected (Not Detectd) Disposition Clinical Impression: Abdominal pain, Urinary tract infection Disposition: HOME SELF-CARE Condition: Good Instructions (If sedation given, give patient instructions): Urinary Tract Infection in Women (ED), Abdominal Pain (ED) Prescriptions: Sulfamethox-Tmp 800-160Mg [Bactrim Ds] 1 each PO Q12HR #10 tab Is patient prescribed a controlled substance at d/c from ED?: No Referrals: Blanka Combs MD [Primary Care Provider] - 1-2 days
--- NOTE | 2021-05-27 04:43 | CT ---
EXAMINATION TYPE: CT abdomen pelvis wo con DATE OF EXAM: 05/27/2021 COMPARISON: None HISTORY: right flank pain CT DLP: 476.2 mGycm Automated exposure control for dose reduction was used. Images obtained from the diaphragm to the floor the pelvis without contrast. Lung bases are clear. There is no pleural effusion. Heart size is normal. There is no pericardial eff usion. Liver spleen stomach pancreas gallbladder appear normal. The bile ducts are not dilated. There is no adrenal mass. Kidneys have normal size and contour. Ureters are not dilated. I see no evidence of a ureteral calculus. There is no retroperitoneal adenop athy. There is no perinephric edema. Appendix is posterior and appears normal. There are a few perice viet lymph nodes. These measure up to 10 mm. Bladder distends smoothly. There is no inguinal hernia. U terus is anteverted. There is no free fluid in the pelvis. I see no evidence of a pelvic mass. There is no mesenteric edema. There is no ascites or free air. There is no sign of a bowel obstructio n. Lumbar vertebra have normal spacing and alignment. Posterior elements are intact. There is no comp ression fracture. Bony pelvis is intact. The hip joints are intact. IMPRESSION: No evidence of renal stone or obstruction. Normal appendix. There are few nonspecific pericecal lymph nodes. I see no sign of inflammatory bowel disease.
[2021-05-27 05:33] VITALS: BP 121/83; PULSE 64
[2021-05-27] MEDS ORDERED: SULFAMETHOX-TMP 800-160MG 1 EACH TAB PO STA (05:42)
== END 2021-05-27 05:52 | disposition home or self-care (01) ==
LOC: EC 03:04
DX: N39.0 Urinary tract infection, site not specified (principal); R10.31 Right lower quadrant pain; R11.0 Nausea; Z87.891 Personal history of nicotine dependence; Z88.1 Allergy status to other antibiotic agents; Z91.018 Allergy to other foods
CPT/HCPCS: 36415; 74176; 80053; 81001; 81025; 82150; 83690; 85025; 86140; 99284

== ENCOUNTER 2021-08-03 11:53 | Emergency (ER) | payer OTHER ==
[2021-08-03 12:00] VITALS: BP 111/74; PULSE 83; RESP 18; TEMP 98.2
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
--- NOTE | 2021-08-03 12:58 | XR ---
EXAMINATION TYPE: XR sternum DATE OF EXAM: 08/03/2021 COMPARISON: Chest x-ray same date HISTORY: Fall, pain TECHNIQUE: 2 views sternum FINDINGS: Sternum is examined in 2 views. Sternal manubrial junction is not well delineated. Orientat ion may be difficult to delineate. CT of chest can further evaluate this junction. The manubrium appears intact. There appears to be a slip of aerated lung at the level of the mid ster num causing some limitation on the evaluation. Obvious displaced fracture is not identified. Soft tis sues obscure the distal sternum. No suspicious retrosternal thickening is evident. IMPRESSION: 1. No obvious displaced fractures are identified. 2. There is some limitation on this evaluation, especially at the sternal manubrial junction. If clos er evaluation is required, CT chest could be performed without contrast.
--- NOTE | 2021-08-03 13:01 | XR ---
EXAMINATION TYPE: XR chest 2V DATE OF EXAM: 08/03/2021 COMPARISON: None INDICATION: Fall pain anterior chest TECHNIQUE: Frontal and lateral views of the chest are obtained. FINDINGS: The heart size is normal. The pulmonary vasculature is normal. The lungs are clear. No pneumothorax is evident. Sternal manubrial junction is visualized appears wi thin normal limits but has limited evaluation. IMPRESSION: 1. No acute pulmonary process.
[2021-08-03] MEDS ORDERED: ACET/COD 300 MG/30 MG STARTER PACK 6 TAB BTL PO STA (13:13)
== END 2021-08-03 13:19 | disposition home or self-care (01) ==
LOC: EC 11:53
DX: S20.219A Contusion of unspecified front wall of thorax, initial encounter (principal); F12.90 Cannabis use, unspecified, uncomplicated; Z87.891 Personal history of nicotine dependence; Z88.1 Allergy status to other antibiotic agents; W19.XXXA Unspecified fall, initial encounter
CPT/HCPCS: 71046; 71120; 99284

== ENCOUNTER 2021-09-14 16:14 | Emergency (ER) | payer OTHER ==
[2021-09-14] MEDS ORDERED: ACETAMINOPHEN TAB 325 MG TAB PO STA (18:10)
[2021-09-14] MEDS ORDERED: IBUPROFEN 600 MG TAB PO STA (18:10)
[2021-09-14] MEDS ORDERED: DEXAMETHASONE SOD PHOSPHATE 10 MG/ML 1 ML VIAL IVP STA (18:11)
--- NOTE | 2021-09-14 18:23 | ED ---
URI HPI - General Chief Complaint: Upper Respiratory Infection Stated Complaint: SOB, weakness Time Seen by Provider: 09/14/21 18:09 Source: patient, RN notes reviewed Mode of arrival: ambulatory Limitations: no limitations - History of Present Illness Initial Comments: Patient is a 21-year-old female that presents to the emergency department complaining of upper respiratory tract symptoms and not feeling well since this morning. She notes she does have a fever. Patient notes she came to the emergency room to get evaluated. Patient was otherwise well-appearing. She denied chest pain shortness breath headache nausea vomiting diarrhea constipation fatigue chills. - Related Data Home Medications Medication Instructions Recorded Confirmed No Known Home Medications 08/03/21 08/03/21 Allergies Allergy/AdvReac Type Severity Reaction Status Date / Time cephalexin [From Keflex] Allergy Rash/Hives Verified 09/14/21 16:40 kiwi Allergy Unknown Verified 09/14/21 16:40 Review of Systems ROS Statement: Those systems with pertinent positive or pertinent negative responses have been documented in the HPI. ROS Other: All systems not noted in ROS Statement are negative. Past Medical History Past Medical History: No Reported History Additional Past Medical History / Comment(s): Anemia History of Any Multi-Drug Resistant Organisms: None Reported Past Surgical History: No Surgical Hx Reported Past Anesthesia/Blood Transfusion Reactions: No Reported Reaction Past Psychological History: No Psychological Hx Reported Smoking Status: Former smoker Past Alcohol Use History: Occasional Past Drug Use History: Marijuana - Past Family History Mother Family Medical History: No Reported History General Exam Limitations: no limitations General appearance: alert, in no apparent distress, obese Head exam: Present: atraumatic, normocephalic, normal inspection Eye exam: Present: normal appearance, PERRL, EOMI. Absent: scleral icterus, conjunctival injection, periorbital swelling ENT exam: Present: normal exam, mucous membranes moist Neck exam: Present: normal inspection Respiratory exam: Present: normal lung sounds bilaterally. Absent: respiratory distress, wheezes, rales, rhonchi, stridor Cardiovascular Exam: Present: regular rate, normal rhythm, normal heart sounds. Absent: systolic murmur, diastolic murmur, rubs, gallop, clicks GI/Abdominal exam: Present: soft, normal bowel sounds. Absent: distended, tenderness, guarding, rebound, rigid Extremities exam: Present: normal inspection, full ROM, normal capillary refill. Absent: tenderness, pedal edema, joint swelling, calf tenderness Neurological exam: Present: alert, oriented X3 Psychiatric exam: Present: normal affect, normal mood Skin exam: Present: warm, dry, intact, normal color. Absent: rash Course Vital Signs 09/14/21 16:40 Temperature 102.8 F H Pulse Rate 141 H Respiratory 20 Rate Blood Pressure 101/67 O2 Sat by Pulse 99 Oximetry Medical Decision Making - Medical Decision Making 21-year-old female with upper respiratory tract symptoms. Covid test ordered. Covid test positive. Patient does meet criteria for monoclonal antibodies and wishes to undergo infusion. She is agreeable with discharge home after. 600 mg of Motrin and 650 mg of Tylenol ordered for mild fever. Case discussed with Dr. Bragg, patient can discharge home after. - Lab Data Lab Results 09/14/21 Range/Units 16:43 Coronavirus (PCR) Detected A (Not Detectd) Disposition Clinical Impression: COVID Disposition: HOME SELF-CARE Condition: Stable Instructions (If sedation given, give patient instructions): Coronavirus Disease 2019 (COVID-19) Additional Instructions: Please return to the Emergency Department if symptoms worsen or any other concerns. Alternate Tylenol Motrin every 3 hours. Follow-up with primary care 1-2 days. Is patient prescribed a controlled substance at d/c from ED?: No Referrals: Blanka Combs MD [Primary Care Provider] - 1-2 days Time of Disposition: 18:23
[2021-09-14] MEDS ORDERED: SODIUM CHLORIDE 0.9% 50 ML IVPB ONE (19:00)
[2021-09-14 19:18] VITALS: RESP 18
[2021-09-14] MEDS ORDERED: BAMLANIVIMAB (EUA) 700 MG, ETESEVIMAB (EUA) 1,400 MG in SODIUM CHLORIDE 0.9% 50 ML IVPB ONE (19:30)
[2021-09-14 20:37] VITALS: BP 101/58; PULSE 115; TEMP 99.9
== END 2021-09-14 20:37 | disposition home or self-care (01) ==
LOC: EC 16:14
DX: U07.1 COVID-19 (principal); F12.90 Cannabis use, unspecified, uncomplicated; Z88.1 Allergy status to other antibiotic agents; Z87.891 Personal history of nicotine dependence
CPT/HCPCS: 96374; 99283; M0245; 87635

== ENCOUNTER 2021-10-06 10:52 | Emergency (ER) | payer OTHER ==
[2021-10-06 11:16] VITALS: BP 112/72; PULSE 84; TEMP 98.7
--- NOTE | 2021-10-06 11:56 | XR ---
EXAMINATION TYPE: XR chest 2V DATE OF EXAM: 10/06/2021 COMPARISON: Chest x-ray August 03, 2021 HISTORY: COVID -positive September 14 with recurrent cough and congestion for 3 days TECHNIQUE: Frontal and lateral views of the chest are obtained. FINDINGS: There is no suspicious new focal air space opacity, pleural effusion, or pneumothorax seen . The cardiac silhouette size remains within normal limits. The osseous structures are intact. IMPRESSION: No acute pulmonary process. No significant change from prior study.
[2021-10-06 12:13] VITALS: RESP 20
--- NOTE | 2021-10-06 12:14 | ED ---
URI HPI - General Chief Complaint: Upper Respiratory Infection Stated Complaint: SOB and fever Time Seen by Provider: 10/06/21 12:03 Source: patient Mode of arrival: ambulatory Limitations: no limitations - History of Present Illness Initial Comments: This is a pleasant 21-year-old female started getting body aches, fatigue, runny nose, sore throat about 3 or 4 days ago. Patient states it feels very similar to when she had COVID-19 back in August. Patient denies any shortness of breath. No chest pain. No nausea or vomiting. No abdominal pain. No chance of . No diarrhea or constipation. No known ill contacts. Patient has no significant past medical history. Nonsmoker, no alcohol or drug abuse. Does use marijuana occasionally. - Related Data Home Medications Medication Instructions Recorded Confirmed No Known Home Medications 08/03/21 08/03/21 Allergies Allergy/AdvReac Type Severity Reaction Status Date / Time cephalexin [From Keflex] Allergy Rash/Hives Verified 10/06/21 11:12 kiwi Allergy Unknown Verified 10/06/21 11:12 Review of Systems ROS Statement: Those systems with pertinent positive or pertinent negative responses have been documented in the HPI. ROS Other: All systems not noted in ROS Statement are negative. Past Medical History Past Medical History: No Reported History Additional Past Medical History / Comment(s): Anemia History of Any Multi-Drug Resistant Organisms: None Reported Past Surgical History: No Surgical Hx Reported Past Anesthesia/Blood Transfusion Reactions: No Reported Reaction Past Psychological History: No Psychological Hx Reported Smoking Status: Former smoker Past Alcohol Use History: Occasional Past Drug Use History: Marijuana - Past Family History Mother Family Medical History: No Reported History General Exam - General Exam Comments Initial Comments: Patient's vital signs are stable, patient afebrile. Patient appears to be minimally ill but not toxic. Limitations: no limitations General appearance: alert, in no apparent distress Head exam: Present: atraumatic, normocephalic, normal inspection Eye exam: Present: normal appearance, PERRL, EOMI. Absent: scleral icterus, conjunctival injection, periorbital swelling ENT exam: Present: normal oropharynx, mucous membranes dry, mucous membranes moist, other (Clear runny nose noted.) Neck exam: Present: normal inspection, full ROM. Absent: tenderness, meningismus, lymphadenopathy Respiratory exam: Present: normal lung sounds bilaterally. Absent: respiratory distress, wheezes, rales, rhonchi, stridor Cardiovascular Exam: Present: regular rate, normal rhythm, normal heart sounds. Absent: systolic murmur, diastolic murmur, rubs, gallop, clicks GI/Abdominal exam: Present: soft, normal bowel sounds. Absent: distended, tenderness, guarding, rebound, rigid Extremities exam: Present: normal inspection, full ROM, normal capillary refill. Absent: tenderness, pedal edema, joint swelling, calf tenderness Back exam: Present: normal inspection Neurological exam: Present: alert, oriented X3, CN II-XII intact, normal gait, motor sensory deficit Psychiatric exam: Present: normal affect, normal mood Skin exam: Present: warm, dry, intact, normal color. Absent: rash Course Vital Signs 10/06/21 11:12 Temperature 98.7 F Pulse Rate 84 Respiratory 16 Rate Blood Pressure 112/72 O2 Sat by Pulse 97 Oximetry Medical Decision Making - Medical Decision Making Patient process of symptomology consistent with a viral upper respiratory infection. Patient being seen during - pandemic. Patient ended up being positive for influenza A. Will treat with conservative measures. Patient counseled on treatment plan. General precautions discussed in detail. Patient voiced understanding. Patient was told to return to the ER for any signs or symptoms worsen. Told to return immediately if any other problems arise. All questions answered. Treatment plan discussed. Patient in agreement - Lab Data Lab Results 10/06/21 Range/Units 11:17 Influenza Type A RNA Detected H (Not Detectd) Influenza Type B (PCR) Not Detected (Not Detectd) Disposition Clinical Impression: Influenza A Disposition: HOME SELF-CARE Condition: Good Instructions (If sedation given, give patient instructions): Influenza (ED) Additional Instructions: Follow-up with your regular physician as directed. Return to the ER immediately if any symptoms worsen, new symptoms arise, or any other problems develop. Use [id number] acetaminophen and/or ibuprofen for fever control. Drink plenty of fluids. Contagiousness. Try not to spread the influenza to anybody else. Is patient prescribed a controlled substance at d/c from ED?: No Referrals: Blanka Combs MD [Primary Care Provider] - 10/13/21 Time of Disposition: 12:09
== END 2021-10-06 12:17 | disposition home or self-care (01) ==
LOC: EC 10:52
DX: J10.1 Influenza due to other identified influenza virus with other respiratory manifestations (principal); F12.90 Cannabis use, unspecified, uncomplicated; Z87.891 Personal history of nicotine dependence
CPT/HCPCS: 71046; 87502; 99283

== ENCOUNTER 2021-10-17 23:42 | Emergency (ER) | payer OTHER ==
[2021-10-17 23:58] VITALS: BP 134/81; PULSE 99; TEMP 98.7
[2021-10-18 01:24] VITALS: RESP 24
--- NOTE | 2021-10-18 01:44 | XR ---
EXAMINATION TYPE: XR chest 2V DATE OF EXAM: 10/18/2021 COMPARISON: 10/06/2021 HISTORY: Cough TECHNIQUE: FINDINGS: Heart and mediastinum are normal. Lungs are clear. Diaphragm is normal. Bony thorax is inta ct. IMPRESSION: Normal chest. No change.
[2021-10-18] MEDS ORDERED: predniSONE 50 MG TAB PO STA (01:50)
--- NOTE | 2021-10-18 01:50 | ED ---
URI HPI - General Chief Complaint: Upper Respiratory Infection Stated Complaint: Coughing up blood Time Seen by Provider: 10/18/21 01:14 Source: patient Mode of arrival: ambulatory Limitations: no limitations - History of Present Illness Initial Comments: 21 year-old female patient presents to the emergency department for evaluation after coughing up blood. States she was diagnosed with COVID in August. She started to improve then tested positive for influenza A on Oct 06. States she has persistent cough. Does become winded with activity. States today she coughed up some phlegm and there was presence of blood. Denies any further episodes. Denies any chest pain. Denies current fever or chills. Denies leg pain or swelling. Denies history of respiratory conditions. Denies taking any medication for her symptoms throughout both illnesses. States she has been alternating tylenol and motrin. - Related Data Previous Rx's Medication Instructions Recorded Albuterol Sulfate [Proair Hfa] 1 - 2 puff INHALATION Q6HR PRN 10/18/21 #8.5 gm guaiFENesin-DM 600/30MG [Mucinex 2 each PO Q12HR PRN #20 tab 10/18/21 Dm] predniSONE 50 mg PO DAILY #5 tablet 10/18/21 Allergies Allergy/AdvReac Type Severity Reaction Status Date / Time cephalexin [From Keflex] Allergy Rash/Hives Verified 10/17/21 23:55 kiwi Allergy Unknown Verified 10/17/21 23:55 Review of Systems ROS Statement: Those systems with pertinent positive or pertinent negative responses have been documented in the HPI. ROS Other: All systems not noted in ROS Statement are negative. Past Medical History Past Medical History: No Reported History Additional Past Medical History / Comment(s): Anemia History of Any Multi-Drug Resistant Organisms: None Reported Past Surgical History: No Surgical Hx Reported Past Anesthesia/Blood Transfusion Reactions: No Reported Reaction Past Psychological History: No Psychological Hx Reported Smoking Status: Former smoker Past Alcohol Use History: Occasional Past Drug Use History: Marijuana - Past Family History Mother Family Medical History: No Reported History General Exam Limitations: no limitations General appearance: alert, in no apparent distress, other (This is a well- developed, well-nourished adult female in no acute distress.) ENT exam: Present: normal exam, normal oropharynx, mucous membranes moist Respiratory exam: Present: normal lung sounds bilaterally. Absent: respiratory distress, wheezes, rales, rhonchi, stridor Cardiovascular Exam: Present: regular rate, normal rhythm, normal heart sounds. Absent: systolic murmur, diastolic murmur, rubs, gallop, clicks GI/Abdominal exam: Present: soft, normal bowel sounds. Absent: distended, tenderness, guarding, rebound, rigid Neurological exam: Present: alert, oriented X3, CN II-XII intact Psychiatric exam: Present: normal affect, normal mood Skin exam: Present: warm, dry, intact, normal color. Absent: rash Course Vital Signs 10/17/21 10/18/21 23:55 01:23 Temperature 98.7 F Pulse Rate 99 Respiratory 20 24 Rate Blood Pressure 134/81 O2 Sat by Pulse 100 Oximetry Medical Decision Making - Medical Decision Making 21-year-old female patient presents to the emergency department today for evaluation of hemoptysis. Physical examination did reveal clear equal lung sounds. She is in no respiratory distress. Vital signs are unremarkable with normal oxygen saturation. Chest x-ray is negative. I did see a photo of her hemoptysis, there was streaking red blood and green sputum. It is most likely related to bronchitis after having 2 [id number] viral illnesses. She'll be treated with steroids, Mucinex, Pro Air inhaler. She is instructed to follow-up with her primary care physician for recheck in 1-2 days. Return parameters were discussed in detail. She verbalizes understanding and agrees with this plan. My attending is Dr. Gomez. - Radiology Data Radiology results: report reviewed, image reviewed Two-view x-ray of the chest is obtained. Report is reviewed in its entirety. Impression by Dr. Page shows normal chest. No change. Disposition Clinical Impression: Acute bronchitis, Hemoptysis Disposition: HOME SELF-CARE Condition: Good Instructions (If sedation given, give patient instructions): Acute Bronchitis (ED), Hemoptysis (ED) Additional Instructions: Take medications as directed. Follow-up through primary care physician for recheck in 1-2 days. Return for any new, worsening, or concerning symptoms. Prescriptions: guaiFENesin-DM 600/30MG [Mucinex Dm] 2 each PO Q12HR PRN #20 tab PRN Reason: Cough predniSONE 50 mg PO DAILY #5 tablet Albuterol Sulfate [Proair Hfa] 1 - 2 puff INHALATION Q6HR PRN #8.5 gm PRN Reason: Shortness Of Breath Is patient prescribed a controlled substance at d/c from ED?: No Referrals: Blanka Combs MD [Primary Care Provider] - 1-2 days Time of Disposition: 01:50
[2021-10-18] MEDS ORDERED: guaiFENesin-DM 600/30MG 1 EACH TAB.ER.12H PO ONE (02:00)
== END 2021-10-18 02:21 | disposition home or self-care (01) ==
LOC: EC 23:42
DX: J20.9 Acute bronchitis, unspecified (principal); R04.2 Hemoptysis; Z87.891 Personal history of nicotine dependence; Z86.16 Personal history of COVID-19; Z88.1 Allergy status to other antibiotic agents; Z91.018 Allergy to other foods
CPT/HCPCS: 71046; 99283; J7512

== ENCOUNTER 2021-10-29 23:16 | Emergency (ER) | payer OTHER ==
--- NOTE | 2021-10-30 01:23 | ED ---
Abdominal Pain HPI - General Chief Complaint: Abdominal Pain Stated Complaint: Abdominal Pain, diarrhea Time Seen by Provider: 10/29/21 23:34 Source: patient Mode of arrival: ambulatory Limitations: no limitations - History of Present Illness Initial Comments: 21 year-old female patient presents to the emergency department for evaluation of diarrhea. States she had fever on Sunday and started having diarrhea on . States fever has since resolved but the the diarrhea has been persistent. She states every time she eats anything she will have abdominal cramping and diarrhea shortly after. Denies any nausea or vomiting. She did recently have COVID, influenza, and was treated with antibiotics for an urinary tract infection. She denies any recent travel. Denies any hematochezia or melena. Did take pepto bismol without relief. Denies chance of . Patient denies any recent rash, cough, shortness of breath, chest pain, back pain, numbness, tingling, dizziness, weakness, hematuria, dysuria, urinary urgency, urinary frequency, headache, visual changes, or any other complaints. - Related Data Previous Rx's Medication Instructions Recorded Albuterol Sulfate [Proair Hfa] 1 - 2 puff INHALATION Q6HR PRN 10/18/21 #8.5 gm guaiFENesin-DM 600/30MG [Mucinex 2 each PO Q12HR PRN #20 tab 10/18/21 Dm] predniSONE 50 mg PO DAILY #5 tablet 10/18/21 Dicyclomine [Bentyl] 20 mg PO QID #12 tablet 10/30/21 Allergies Allergy/AdvReac Type Severity Reaction Status Date / Time cephalexin [From Keflex] Allergy Rash/Hives Verified 10/29/21 23:28 kiwi Allergy Unknown Verified 10/29/21 23:28 Review of Systems ROS Statement: Those systems with pertinent positive or pertinent negative responses have been documented in the HPI. ROS Other: All systems not noted in ROS Statement are negative. Past Medical History Past Medical History: No Reported History Additional Past Medical History / Comment(s): Anemia History of Any Multi-Drug Resistant Organisms: None Reported Past Surgical History: No Surgical Hx Reported Past Anesthesia/Blood Transfusion Reactions: No Reported Reaction Past Psychological History: No Psychological Hx Reported Smoking Status: Former smoker Past Alcohol Use History: Occasional Past Drug Use History: Marijuana - Past Family History Mother Family Medical History: No Reported History General Exam Limitations: no limitations General appearance: alert, in no apparent distress, other (This is a well developed, well nourished adult female in no acute distress.) ENT exam: Present: normal exam, normal oropharynx, mucous membranes moist Respiratory exam: Present: normal lung sounds bilaterally. Absent: respiratory distress, wheezes, rales, rhonchi, stridor Cardiovascular Exam: Present: regular rate, normal rhythm, normal heart sounds. Absent: systolic murmur, diastolic murmur, rubs, gallop, clicks GI/Abdominal exam: Present: soft, normal bowel sounds. Absent: distended, tenderness, guarding, rebound, rigid Neurological exam: Present: alert, oriented X3, CN II-XII intact Psychiatric exam: Present: normal affect, normal mood Skin exam: Present: warm, dry, intact, normal color. Absent: rash Course Vital Signs 10/29/21 10/30/21 23:24 01:36 Temperature 98.0 F 98.5 F Pulse Rate 98 79 Respiratory 20 19 Rate Blood Pressure 115/77 100/73 O2 Sat by Pulse 99 98 Oximetry Medical Decision Making - Medical Decision Making 21-year-old female patient presents to the emergency department today for evaluation of diarrhea since . Physical examination did reveal soft nontender abdomen. She is afebrile. Stool sample was ordered. Patient was unable to provide a sample while here. She did tolerate oral intake. She'll be discharged with prescription to bring and stool sample for Clostridium difficile. She is given Bentyl for discomfort. She is instructed to follow-up with her primary care physician for recheck in 1-2 days. Return parameters were discussed in detail. She verbalizes understanding and agrees this plan. My attending is Dr. Gomez. Disposition Clinical Impression: Diarrhea Disposition: HOME SELF-CARE Condition: Good Instructions (If sedation given, give patient instructions): Acute Diarrhea (ED) Additional Instructions: Increase fluids, specifically sports drinks if possible. Return with stool sample. Follow-up with primary care physician for recheck in 1-2 days. Return for any new, worsening, or concerning symptoms. Prescriptions: Dicyclomine [Bentyl] 20 mg PO QID #12 tablet Is patient prescribed a controlled substance at d/c from ED?: No Referrals: Blanka Combs MD [Primary Care Provider] - 1-2 days Time of Disposition: 01:23
[2021-10-30] MEDS ORDERED: DICYCLOMINE 20 MG TAB PO STA (01:26)
[2021-10-30 01:37] VITALS: BP 100/73; PULSE 79; RESP 19; TEMP 98.5
== END 2021-10-30 01:37 | disposition home or self-care (01) ==
LOC: EC 23:16
DX: R19.7 Diarrhea, unspecified (principal); Z87.891 Personal history of nicotine dependence; Z91.018 Allergy to other foods; Z88.1 Allergy status to other antibiotic agents
CPT/HCPCS: 99283

== ENCOUNTER → 2022-01-10 | Outpatient (CLI) | payer OTHER ==
--- NOTE | 2022-01-10 09:44 | US ---
EXAMINATION TYPE: US abdomen complete DATE OF EXAM: 01/10/2022 COMPARISON: CT 2020 CLINICAL HISTORY: 22-year-old female R31.29 MICROSCOPIC HEMATURIA. Microscopic hematuria, abdomen vidhya n and diarrhea x couple months TECHNIQUE: Multiple sonographic images of the abdomen are obtained. FINDINGS: EXAM MEASUREMENTS: Liver Length: 13.5 cm Gallbladder Wall: 0.2 cm CBD: 0.3 cm Spleen: 9.4 cm Right Kidney: 9.2 x 3.8 x 4.7 cm Left Kidney: 9.1 x 4.8 x 4.7 cm Pancreas: Only a small portion of the pancreatic body is seen. Remainder is obscured by bowel gas sh adowing. Liver: Overall homogeneous appearance. No focal lesion seen. Gallbladder: wnl Evidence for sonographic Eagle's sign: no CBD: visualized portions wnl, limited by overlying bowel gas Spleen: wnl Right Kidney: wnl Left Kidney: wnl Upper IVC: wnl Abd Aorta: visualized portions wnl, limited by overlying midline bowel gas IMPRESSION: No gallstones or biliary ductal dilatation. No hydronephrosis on either side. No shadowing renal calc malcolm apparent by ultrasound.
== END | disposition home or self-care (01) ==
LOC: RADUSWWP 07:34
PROVIDERS: ATTEND Internal Medicine
DX: R31.29 Other microscopic hematuria (principal); R10.9 Unspecified abdominal pain; R19.7 Diarrhea, unspecified
CPT/HCPCS: 76700

== ENCOUNTER 2022-06-04 07:59 | Emergency (ER) | payer OTHER ==
[2022-06-04 08:14] VITALS: BP 98/62; PULSE 76; RESP 16; TEMP 99.2
--- NOTE | 2022-06-04 08:31 | ED ---
Fever HPI - General Chief Complaint: Fever Stated Complaint: Fever Time Seen by Provider: 06/04/22 08:15 Source: patient Mode of arrival: ambulatory Limitations: no limitations - History of Present Illness Initial Comments: Patient is a 22-year-old male presenting to the emergency room with complaints of fever headache and occasional cough ongoing for approximately 24 hours. She reports that she took Tylenol at home and had a temperature max at home of 102.5. She denies any other associated symptoms with her fever and headache including a neurological deficits, weakness, lethargy, abdominal pain, nausea, vomiting, diarrhea, chest pain or shortness of breath. She denies any chills associated with her fevers. She denies any known COVID or influenza exposure; she denies any recent travel. She has a past medical history significant for iron deficiency anemia but no other chronic conditions and does not take any medications on a regular basis. - Related Data Previous Rx's Medication Instructions Recorded Albuterol Sulfate [Proair Hfa] 1 - 2 puff INHALATION Q6HR PRN 10/18/21 #8.5 gm guaiFENesin-DM 600/30MG [Mucinex 2 each PO Q12HR PRN #20 tab 10/18/21 Dm] predniSONE 50 mg PO DAILY #5 tablet 10/18/21 Dicyclomine [Bentyl] 20 mg PO QID #12 tablet 10/30/21 Allergies Allergy/AdvReac Type Severity Reaction Status Date / Time cephalexin [From Keflex] Allergy Rash/Hives Verified 06/04/22 08:14 kiwi Allergy Unknown Verified 06/04/22 08:14 Review of Systems ROS Statement: Those systems with pertinent positive or pertinent negative responses have been documented in the HPI. ROS Other: All systems not noted in ROS Statement are negative. Past Medical History Past Medical History: Blood Disorder (Anemia) History of Any Multi-Drug Resistant Organisms: None Reported Past Surgical History: No Surgical Hx Reported Past Anesthesia/Blood Transfusion Reactions: No Reported Reaction Past Psychological History: No Psychological Hx Reported Smoking Status: Former smoker Past Alcohol Use History: Occasional Past Drug Use History: Marijuana - Past Family History Mother Family Medical History: No Reported History General Exam General appearance: alert, in no apparent distress Head exam: Present: atraumatic, normocephalic, normal inspection Eye exam: Present: normal appearance, PERRL, EOMI. Absent: scleral icterus, conjunctival injection, periorbital swelling ENT exam: Present: normal exam, mucous membranes moist Neck exam: Present: normal inspection. Absent: lymphadenopathy Respiratory exam: Present: normal lung sounds bilaterally. Absent: respiratory distress, wheezes, rales, rhonchi, stridor Cardiovascular Exam: Present: regular rate, normal rhythm, normal heart sounds. Absent: systolic murmur, diastolic murmur, rubs, gallop, clicks GI/Abdominal exam: Present: soft, normal bowel sounds. Absent: distended, tenderness, guarding, rebound, rigid Extremities exam: Present: normal inspection. Absent: pedal edema, joint swelling Back exam: Present: normal inspection, full ROM Neurological exam: Present: alert, oriented X3, CN II-XII intact Psychiatric exam: Present: normal affect, normal mood Skin exam: Present: warm, dry, intact, normal color. Absent: rash Course Vital Signs 06/04/22 08:11 Temperature 99.2 F Pulse Rate 76 Respiratory 16 Rate Blood Pressure 98/62 O2 Sat by Pulse 97 Oximetry Medical Decision Making - Medical Decision Making 22-year-old female who is typically healthy presenting [facility] the [facility] with complaints of fever with sudden onset along with headache and cough. Will check COVID swap. No indication for other diagnostic testing or laboratory studies at this time. Currently low-grade temperature of 99.2 no need for analgesics or antibiotics at this time. Covid swab positive. No indication for further diagnostic testing or laboratory studies. Findings discussed with patient. Discussed treatment option of Paxolvid and patient wishes to take medication. Discussed symptomatic management along with quarantining and contact tracing. Advised to follow-up with primary care provider after quarantine. Case discussed with Dr. Cunningham. - Lab Data Lab Results 06/04/22 Range/Units 08:20 Coronavirus (PCR) Detected A (Not Detectd) Disposition Clinical Impression: COVID-19 Disposition: HOME SELF-CARE Condition: Stable Instructions (If sedation given, give patient instructions): Fever in Adults (ED), COVID-19 (Coronavirus Disease 2019) (ED) Additional Instructions: Please quarantine for 5 days after testing positive and restart quarantine if symptoms worsen. Please utilize Tylenol as needed for fevers and pain. Taking vitamin C, Zinc, vitamin D 50 mcg, and melatonin may help symptom recovery. Please follow-up with your primary care provider after quarantine. Please return to the Emergency Department if symptoms worsen or any other concerns. Is patient prescribed a controlled substance at d/c from ED?: No Referrals: None,Stated [Primary Care Provider] - 1-2 days Time of Disposition: 09:32
== END 2022-06-04 09:40 | disposition home or self-care (01) ==
LOC: EC 07:59
DX: U07.1 COVID-19 (principal); Z87.891 Personal history of nicotine dependence; Z88.8 Allergy status to other drugs, medicaments and biological substances; Z91.018 Allergy to other foods
CPT/HCPCS: 87635; 99284

== ENCOUNTER 2022-10-13 01:47 | Emergency (ER) | payer OTHER ==
[2022-10-13 01:57] VITALS: TEMP 98
[2022-10-13] MEDS ORDERED: SODIUM CHLORIDE 0.9% 1,000 ML IV ONE (02:12)
[2022-10-13 02:41] LABS: Amorphous Sediment,Urine Few /hpf; Appearance,Urine Cloudy (Clear); Bilirubin,Urine Negative (Negative); Blood,Urine Large (Negative); Color,Urine Yellow; Glucose,Urine (UA) Negative (Negative); Ketones,Urine Negative (Negative); Leukocyte Esterase,Urine Large (Negative); Mucus,Urine Few /hpf; Nitrite,Urine Negative (Negative); Protein,Urine 1+ (Negative); RBC,Urine 84 /hpf (0-5); Specific Gravity,Urine 1.025 (1.001-1.035); Squamous Epithelial Cell,Urine 30 /hpf (0-4); WBC,Urine 165 /hpf (0-5)
[2022-10-13 02:44] LABS: Basophils # (A) 0.1 k/uL (0-0.2); Basophils % (A) 1 %; Eosinophils # (A) 0.3 k/uL (0-0.7); Eosinophils % (A) 3 %; HGB 13.3 gm/dL (11.4-16.0); Lymphocytes # (A) 1.8 k/uL (1.0-4.8); Lymphocytes % (A) 21 %; MCH 29.9 pg (25.0-35.0); MCV 87.9 fL (80.0-100.0); Mean Platelet Volume 7.5; Monocytes # (A) 0.4 k/uL (0-1.0); Monocytes % (A) 5 %; Neutrophils # (A) 5.8 k/uL (1.3-7.7); Neutrophils % (A) 68 %; Platelet Count 272 k/uL (150-450); RBC 4.44 m/uL (3.80-5.40); WBC 8.5 k/uL (3.8-10.6)
[2022-10-13] MEDS ORDERED: KETOROLAC 15 MG/ML 1 ML VIAL IVP STA (02:53)
[2022-10-13] MEDS ORDERED: ACETAMINOPHEN TAB 500 MG TAB PO STA (02:53)
[2022-10-13 02:59] LABS: ALT 15 U/L (4-34); AST 20 U/L (14-36); African American GFR (CKD) >90 (>60 ml/min/1.73 sqM); Albumin 4.8 g/dL (3.5-5.0); Alkaline Phosphatase 66 U/L (38-126); Anion Gap 9 mmol/L; Blood Urea Nitrogen 17 mg/dL (7-17); Calcium 9.5 mg/dL (8.4-10.2); Carbon Dioxide 27 mmol/L (22-30); Chloride 104 mmol/L (98-107); Glucose 85 mg/dL (74-99); Non-African American GFR(CKD) >90 (>60 ml/min/1.73 sqM); Potassium 4.2 mmol/L (3.5-5.1); Sodium 140 mmol/L (137-145); Total Bilirubin 0.4 mg/dL (0.2-1.3); Total Protein 8.3 g/dL (6.3-8.2)
--- NOTE | 2022-10-13 03:35 | CT ---
EXAMINATION TYPE: CT abdomen pelvis w con DATE OF EXAM: 10/13/2022 COMPARISON: 05/27/2021 HISTORY: LLQ pain CT DLP: 744.6 mGycm Automated exposure control for dose reduction was used. CONTRAST: Performed with IV Contrast, patient injected with 100ml mL of Isovue 300. Images obtained from the diaphragm to the floor the pelvis with the IV contrast. The lung bases are clear. No pleural effusion. Heart size is normal. No pericardial effusion. Liver spleen and stomach pancreas and gallbladder appear intact. The bile ducts are not dilated. There is no adrenal mass. Kidneys show satisfactory contrast opacification. No hydronephrosis. Ureter s are not dilated. No retroperitoneal adenopathy. Bladder distends smoothly. No inguinal hernia. Ther e is free fluid in the pelvis. There is no sign of thickened appendix. No free air. No sign of a dipti l obstruction. Lumbar vertebra Appear intact. No compression fracture. Bony pelvis is intact. The hip joints are int act. IMPRESSION: There is free fluid in the pelvis which has density 30 which is indeterminate. This could be hemorrha gic fluid. Fluid appears new compared to old exam. Appendix not seen.
[2022-10-13] MEDS ORDERED: cefTRIAXone 250 MG VIAL IM STA (03:52)
[2022-10-13] MEDS ORDERED: AZITHROMYCIN 500 MG TAB PO STA (03:54)
[2022-10-13] MEDS ORDERED: metroNIDAZOLE 500 MG TAB PO STA (03:54)
--- NOTE | 2022-10-13 04:06 | ED ---
Female Urogenital HPI - General Chief complaint: Urogenital Stated complaint: Abd Pain Time Seen by Provider: 10/13/22 01:58 Source: patient Mode of arrival: ambulatory - History of Present Illness Initial comments: Patient is a 21-year-old female presenting with chief complaint of pelvic pain. She admits to pain that started yesterday afternoon. At times the pain is more prominent in the left lower quadrant. Patient notes taking a plan B on Sunday. She states that her LMP was last week. She noted small amount of pink discharge when wiping today. No nausea, vomiting, fever, chills, chest pain, difficulty breathing, purulent vaginal discharge, diarrhea, hematochezia, melena, lightheadedness. - Related Data Previous Rx's Medication Instructions Recorded Albuterol Sulfate [Proair Hfa] 1 - 2 puff INHALATION Q6HR PRN 10/18/21 #8.5 gm guaiFENesin-DM 600/30MG [Mucinex 2 each PO Q12HR PRN #20 tab 10/18/21 Dm] predniSONE 50 mg PO DAILY #5 tablet 10/18/21 Dicyclomine [Bentyl] 20 mg PO QID #12 tablet 10/30/21 Ciprofloxacin HCl [Cipro] 250 mg PO Q12HR 3 Days #6 tab 10/13/22 Allergies Allergy/AdvReac Type Severity Reaction Status Date / Time cephalexin [From Keflex] Allergy Rash/Hives Verified 10/13/22 01:56 kiwi Allergy Unknown Verified 10/13/22 01:56 Review of Systems ROS Statement: Those systems with pertinent positive or pertinent negative responses have been documented in the HPI. ROS Other: All systems not noted in ROS Statement are negative. Past Medical History Past Medical History: Blood Disorder Additional Past Medical History / Comment(s): Anemia History of Any Multi-Drug Resistant Organisms: None Reported Past Surgical History: No Surgical Hx Reported Past Anesthesia/Blood Transfusion Reactions: No Reported Reaction Past Psychological History: No Psychological Hx Reported Smoking Status: Former smoker Past Alcohol Use History: Occasional Past Drug Use History: Marijuana - Past Family History Mother Family Medical History: No Reported History General Exam Limitations: no limitations General appearance: alert, in no apparent distress Head exam: Present: atraumatic, normocephalic, normal inspection Eye exam: Present: normal appearance Neck exam: Present: normal inspection Respiratory exam: Present: normal lung sounds bilaterally. Absent: respiratory distress, wheezes, rales, rhonchi, stridor Cardiovascular Exam: Present: regular rate, normal rhythm, normal heart sounds. Absent: systolic murmur, diastolic murmur, rubs, gallop, clicks GI/Abdominal exam: Present: soft. Absent: distended, tenderness, guarding, rebound, rigid External exam: Present: normal external exam Speculum exam: Present: vaginal bleeding (Very mild, light pink) By manual exam: Present: cervical motion tenderness Neurological exam: Present: alert, oriented X3, CN II-XII intact Psychiatric exam: Present: normal affect, normal mood Skin exam: Present: warm, dry, intact, normal color. Absent: rash Course Vital Signs 10/13/22 10/13/22 01:51 04:26 Temperature 98 F Pulse Rate 79 76 Respiratory 18 16 Rate Blood Pressure 104/69 105/78 O2 Sat by Pulse 99 98 Oximetry Medical Decision Making - Medical Decision Making Was pt. sent in by a medical professional or institution (, PA, SKIVER COUNTER, urgent care, hospital, or correction...) When possible be specific @ -[No] Did you speak to anyone other than the patient for history (EMS, parent, family, police, friend...)? What history was obtained from this source @ -[No] Did you review nursing and triage notes (agree or disagree)? Why? @ -[I reviewed and agree with nursing and triage notes] Were old charts reviewed (outside hosp., previous admission, EMS record, old EKG, old radiological studies, urgent care reports/EKG's, correction records)? Report findings @ -[No old charts were reviewed] Differential Diagnosis (chest pain, altered mental status, abdominal pain women, abdominal pain men, vaginal bleeding, weakness, fever, dyspnea, syncope, headache, dizziness, GI bleed, back pain, seizure, CVA, palpatations, mental health)? @ MDM Differential Abdominal Pain Women: Appendicitis, Cholecystitis, diverticulosis, ischemic bowel, pancreatitis, hepatitis, UTI, gastroenteritis, AAA, incarcerated hernia, bowel obstruction, constipation, inflammatory bowel, hepatitis, peptic ulcer disease, splenic infarction, perforated viscus, vulvitis, ovarian torsion, PID, kidney stone, placenta abruption... This is not meant to be an all-inclusive list EKG interpreted by me (3pts min.). @ -[As above] X-rays interpreted by me (1pt min.). @ -[None done] CT interpreted by me (1pt min.). @ -No, radiologist report is reviewed. Some free fluid is noted. U/S interpreted by me (1pt. min.). @ -[None done] What testing was considered but not performed or refused? (CT, X-rays, U/S, labs)? Why? @ -Ultrasound was considered. aircraft maintenance technician is not here at this time, patient's pain does not appear consistent with etiologies requiring ultrasound. What meds were considered but not given or refused? Why? @ -[None] Did you discuss the management of the patient with other professionals (professionals i.e. , PA, SKIVER COUNTER, lab, RT, psych nurse, social studies department chair, audit partner, teacher, chief security and safety officer, manager of case)? Give summary @ -[No] Was smoking cessation discussed for >3mins.? @ -[No] Was critical care preformed (if so, how long)? @ -[No] Were there social determinants of health that impacted care today? How? (Homeles sness, low income, unemployed, alcoholism, drug addiction, transportation, low edu. Level, literacy, decrease access to med. care, [facility], rehab)? @ -[No] Was there de-escalation of care discussed even if they declined (Discuss DNR or withdrawal of care, Hospice)? DNR status @ -[No] What co-morbidities impacted this encounter? (DM, HTN, Smoking, COPD, CAD, Cancer, CVA, ARF, Chemo, Hep., AIDS, mental health diagnosis, sleep apnea, morbid obesity)? @ -[None] Was patient admitted / discharged? Hospital course, mention meds given and route, prescriptions, significant lab abnormalities, going to OR and other pertinent info. @ -Patient is a 22-year-old female presenting with chief complaint of pelvic pain. She noted a small amount of pink vaginal discharge and presented for evaluation. On pelvic examination there is a very small amount of light pink blood in the vault. There is some cervical motion tenderness noted. Urine is positive for blood and leukocytes. HCG is negative. Rapid Trichomonas testing is negative. CT was obtained and reviewed with my attending. Patient was given Toradol and Tylenol, on reassessment she reports improvement in her pain. Cramping appears most consistent with Plan B usage, Patient will be treated prophylactically for STI with Rocephin and azithromycin. She is sent ciprofloxacin for UTI treatment. Urine sent for culture. Genital cultures centile as well as gonorrhea and chlamydia testing. Vital signs are WNL patient is well-appearing. Discharged home. Follow-up with PCP. Report back to ER with any new or worsening symptoms. Discussed return parameters and answered all questions. Patient conveyed verbal understanding and agreed to the plan. I discussed this case in detail with my attending Dr. Gomez Undiagnosed new problem with uncertain prognosis? @ -[No] Drug Therapy requiring intensive monitoring for toxicity (Heparin, Nitro, Insulin, Cardizem)? @ -[No] Were any procedures done? @ -[No] Diagnosis/symptom? @ -UTI Acute, or Chronic, or Acute on Chronic? @ -Acute Uncomplicated (without systemic symptoms) or Complicated (systemic symptoms)? @ -Uncomplicated Side effects of treatment? @ -[No] Exacerbation, Progression, or Severe Exacerbation? @ -[No] Poses a threat to life or bodily function? How? (Chest pain, USA, OR, pneumonia, PE, COPD, DKA, ARF, appy, cholecystitis, CVA, Diverticulitis, Homicidal, Suicidal, threat to staff... and all critical care pts) @ -[No] - Lab Data Result diagrams: 10/13/22 02:33 10/13/22 02:33 Lab Results 10/13/22 10/13/22 10/13/22 Range/Units 01:58 01:58 02:33 WBC 8.5 (3.8-10.6) k/uL RBC 4.44 (3.80-5.40) m/uL Hgb 13.3 (11.4-16.0) gm/dL Hct 39.0 (34.0-46.0) % MCV 87.9 (80.0-100.0) fL MCH 29.9 (25.0-35.0) pg MCHC 34.0 (31.0-37.0) g/dL RDW 13.0 (11.5-15.5) % Plt Count 272 (150-450) k/uL MPV 7.5 Neutrophils % 68 % Lymphocytes % 21 % Monocytes % 5 % Eosinophils % 3 % Basophils % 1 % Neutrophils # 5.8 (1.3-7.7) k/uL Lymphocytes # 1.8 (1.0-4.8) k/uL Monocytes # 0.4 (0-1.0) k/uL Eosinophils # 0.3 (0-0.7) k/uL Basophils # 0.1 (0-0.2) k/uL Sodium (137-145) mmol/L Potassium (3.5-5.1) mmol/L Chloride (98-107) mmol/L Carbon Dioxide (22-30) mmol/L Anion Gap mmol/L BUN (7-17) mg/dL Creatinine (0.52-1.04) mg/dL Est GFR (CKD-EPI)AfAm (>60 ml/min/1.73 sqM) Est GFR (CKD-EPI)NonAf (>60 ml/min/1.73 sqM) Glucose (74-99) mg/dL Calcium (8.4-10.2) mg/dL Total Bilirubin (0.2-1.3) mg/dL AST (14-36) U/L ALT (4-34) U/L Alkaline Phosphatase (38-126) U/L Total Protein (6.3-8.2) g/dL Albumin (3.5-5.0) g/dL Urine Color Yellow Urine Appearance Cloudy H (Clear) Urine pH 7.0 (5.0-8.0) Ur Specific Orange 1.025 (1.001-1.035) Urine Protein 1+ H (Negative) Urine Glucose (UA) Negative (Negative) Urine Ketones Negative (Negative) Urine Blood Large H (Negative) Urine Nitrite Negative (Negative) Urine Bilirubin Negative (Negative) Urine Urobilinogen 2.0 (<2.0) mg/dL Ur Leukocyte Esterase Large H (Negative) Urine RBC 84 H (0-5) /hpf Urine WBC 165 H (0-5) /hpf Ur Squamous Epith Cells 30 H (0-4) /hpf Amorphous Sediment Few H (None) /hpf Urine Mucus Few H (None) /hpf Urine HCG, Qual Not Detected (Not Detectd) Trichomonas Ag (Rapid) (Negative) 10/13/22 10/13/22 Range/Units 02:33 02:52 WBC (3.8-10.6) k/uL RBC (3.80-5.40) m/uL Hgb (11.4-16.0) gm/dL Hct (34.0-46.0) % MCV (80.0-100.0) fL MCH (25.0-35.0) pg MCHC (31.0-37.0) g/dL RDW (11.5-15.5) % Plt Count (150-450) k/uL MPV Neutrophils % % Lymphocytes % % Monocytes % % Eosinophils % % Basophils % % Neutrophils # (1.3-7.7) k/uL Lymphocytes # (1.0-4.8) k/uL Monocytes # (0-1.0) k/uL Eosinophils # (0-0.7) k/uL Basophils # (0-0.2) k/uL Sodium 140 (137-145) mmol/L Potassium 4.2 (3.5-5.1) mmol/L Chloride 104 (98-107) mmol/L Carbon Dioxide 27 (22-30) mmol/L Anion Gap 9 mmol/L BUN 17 (7-17) mg/dL Creatinine 0.82 (0.52-1.04) mg/dL Est GFR (CKD-EPI)AfAm >90 (>60 ml/min/1.73 sqM) Est GFR (CKD-EPI)NonAf >90 (>60 ml/min/1.73 sqM) Glucose 85 (74-99) mg/dL Calcium 9.5 (8.4-10.2) mg/dL Total Bilirubin 0.4 (0.2-1.3) mg/dL AST 20 (14-36) U/L ALT 15 (4-34) U/L Alkaline Phosphatase 66 (38-126) U/L Total Protein 8.3 H (6.3-8.2) g/dL Albumin 4.8 (3.5-5.0) g/dL Urine Color Urine Appearance (Clear) Urine pH (5.0-8.0) Ur Specific Orange (1.001-1.035) Urine Protein (Negative) Urine Glucose (UA) (Negative) Urine Ketones (Negative) Urine Blood (Negative) Urine Nitrite (Negative) Urine Bilirubin (Negative) Urine Urobilinogen (<2.0) mg/dL Ur Leukocyte Esterase (Negative) Urine RBC (0-5) /hpf Urine WBC (0-5) /hpf Ur Squamous Epith Cells (0-4) /hpf Amorphous Sediment (None) /hpf Urine Mucus (None) /hpf Urine HCG, Qual (Not Detectd) Trichomonas Ag (Rapid) Negative (Negative) Disposition Clinical Impression: Urinary tract infection Disposition: HOME SELF-CARE Condition: Good Instructions (If sedation given, give patient instructions): Urinary Tract Infection in Women (ED) Additional Instructions: Follow-up with PCP. Report back to ER with any new or worsening symptoms. Take medication as prescribed. Prescriptions: Ciprofloxacin HCl [Cipro] 250 mg PO Q12HR 3 Days #6 tab Is patient prescribed a controlled substance at d/c from ED?: No Referrals: Chandra Crowe MD [Primary Care Provider] - 1-2 days Time of Disposition: 04:06
[2022-10-13 04:27] VITALS: BP 105/78; PULSE 76; RESP 16
[2022-10-16 14:34] LABS: C. trachomatis,PCR Negative (Neg,Equiv); Chlamydia trachomatis Source Urine; N. gonorrhoeae,PCR Negative (Neg,Equiv); Neisseria Source Urine
== END 2022-10-13 04:28 | disposition home or self-care (01) ==
LOC: EC 01:47
DX: N39.0 Urinary tract infection, site not specified (principal); F12.90 Cannabis use, unspecified, uncomplicated; Z88.1 Allergy status to other antibiotic agents; Z91.018 Allergy to other foods; Z87.891 Personal history of nicotine dependence
CPT/HCPCS: 36415; 80053; 85025; 81001; 81025; 87808; 87491; 87591; 87070; 87086; 74177; 99284; 96372; 96374; 96361; J0696; J1885; Q9967

== ENCOUNTER → 2022-10-25 | Outpatient (CLI) | payer OTHER ==
--- NOTE | 2022-10-25 10:25 | US ---
EXAMINATION TYPE: US pelvis complete transvag DATE OF EXAM: 10/25/2022 COMPARISON: CT abdomen and pelvis 10/13/2022 CLINICAL HISTORY: R18.8 ASCITES. pelvic pain TECHNIQUE: Transvaginal (TV) and Transabdominal (TA) . Transabdominal sonographic images of the pel vis were acquired. Transvaginal sonographic images were medically necessary to better assess the fol lowing anatomy: per order Date of LMP: 10/10/22 EXAM MEASUREMENTS: Uterus: 7.4 x 4.6 x 3.0 cm Endometrial Stripe: 0.6 cm Right Ovary: 3.2 x 1.9 x 2.9 cm Left Ovary: 2.5 x 2.1 x 3.2 cm 1. Uterus: Anteverted 2. Endometrium: appears wnl 3. Right Ovary: follicles noted 4. Left Ovary: follicles noted 5. Bilateral Adnexa: wnl 6. Posterior cul-de-sac: small amount of free fluid . The fluid appears mildly complex. IMPRESSION: Small amount of mildly complex free fluid in the posterior cul-de-sac. This could be sequelae of rupt ured hemorrhagic cyst. Otherwise unremarkable exam.
== END | disposition home or self-care (01) ==
LOC: RADUSWWP 09:05
PROVIDERS: ATTEND Internal Medicine
DX: R18.8 Other ascites (principal)
CPT/HCPCS: 76830; 76856

== ENCOUNTER → 2022-11-02 | Outpatient (CLI) | payer OTHER ==
[2022-11-02 22:48] LABS: Basophils # (A) 0.03 X 10*3/uL (0.00-0.10); Basophils % (A) 0.5 %; Eosinophils # (A) 0.36 X 10*3/uL (0.04-0.35); Eosinophils % (A) 6.5 %; HCT 42.6 % (37.2-46.3); HGB 13.5 g/dL (12.0-15.0); Immature Grans, Automated 0.2 %; Lymphocytes # (A) 1.96 X 10*3/uL (0.90-5.00); Lymphocytes % (A) 35.5 %; MCH 28.5 pg (27.0-32.0); MCHC 31.7 g/dL (32.0-37.0); MCV 90.1 fL (80.0-97.0); Mean Platelet Volume 9.9 fL (9.5-12.2); Monocytes # (A) 0.32 X 10*3/uL (0.20-1.00); Monocytes % (A) 5.8 %; NRBC Per 100 WBC 0 /100 WBCS (0.0-0.0); Neutrophils # (A) 2.84 X 10*3/uL (1.80-7.70); Neutrophils % (A) 51.5 %; Platelet Count 259 X 10*3/uL (140-440); RBC 4.73 X 10*6/uL (4.10-5.20); RDW 12.6 % (11.5-14.5); WBC 5.52 X 10*3/uL (4.50-10.00)
[2022-11-02 22:58] LABS: African American GFR (CKD) 120.4 (60.0-200.0); Albumin 4.7 g/dL (3.8-4.9); Albumin/Globulin Ratio 1.68 (1.60-3.17); BUN/Creat Ratio 21.75 Ratio (12.00-20.00); Blood Urea Nitrogen 17.4 mg/dL (9.0-27.0); Calcium 9.5 mg/dL (8.7-10.3); Globulin 2.8 g/dL (1.6-3.3); Non-African American GFR(CKD) 103.9 (60.0-200.0); Potassium 4.3 mmol/L (3.5-5.5); Total Bilirubin 0.6 mg/dL (0.30-1.20); Total Protein 7.5 g/dL (6.2-8.2)
== END | disposition home or self-care (01) ==
LOC: LABWHC1 16:00
PROVIDERS: ATTEND Internal Medicine
DX: N83.209 Unspecified ovarian cyst, unspecified side (principal)
CPT/HCPCS: 36415; 80053; 85025

== ENCOUNTER 2023-01-25 20:03 | Emergency (ER) | payer OTHER ==
[2023-01-25 20:33] VITALS: RESP 18
[2023-01-25] MEDS ORDERED: IBUPROFEN 600 MG STARTER PACK 4 TAB BTL PO STA (21:52)
[2023-01-25] MEDS ORDERED: CYCLOBENZAPRINE 10MG STARTER 3 TAB BTL PO STA (21:52)
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
[2023-01-25 22:24] VITALS: BP 110/65; PULSE 68; TEMP 98.5
== END 2023-01-25 22:23 | disposition home or self-care (01) ==
LOC: EC 20:03
DX: S13.9XXA Sprain of joints and ligaments of unspecified parts of neck, initial encounter (principal); F12.90 Cannabis use, unspecified, uncomplicated; Z88.1 Allergy status to other antibiotic agents; Z91.018 Allergy to other foods; V43.62XA Car passenger injured in collision with other type car in traffic accident, initial encounter; Y92.410 Unspecified street and highway as the place of occurrence of the external cause
CPT/HCPCS: 99283

== ENCOUNTER 2023-03-15 13:40 | Emergency (ER) | payer OTHER ==
--- NOTE | 2023-03-15 16:00 | ED ---
General Adult HPI - General Chief complaint: ENT Stated complaint: sore throat Time Seen by Provider: 03/15/23 14:30 Source: patient, RN notes reviewed, old records reviewed Mode of arrival: ambulatory Limitations: no limitations - History of Present Illness Initial comments: This is a [age] female presents emergency Department complaining of a sore thr oat. Patient states been ongoing for about 4-5 days. Patient states she wakes up in the morning her throat is very dry feels like his current crack and is a day goes on he gets better and then it comes back again tonight per patient states she does notice quite a bite postnasal drip. Patient denies any fever chills per patient denies any lymphadenopathy she's noted. Patient denies any facial tenderness. She denies any difficulty breathing or shortness of breath. - Related Data Previous Rx's Medication Instructions Recorded Albuterol Sulfate [Proair Hfa] 1 - 2 puff INHALATION Q6HR PRN 10/18/21 #8.5 gm guaiFENesin-DM 600/30MG [Mucinex 2 each PO Q12HR PRN #20 tab 10/18/21 Dm] predniSONE 50 mg PO DAILY #5 tablet 10/18/21 Dicyclomine [Bentyl] 20 mg PO QID #12 tablet 10/30/21 Ciprofloxacin HCl [Cipro] 250 mg PO Q12HR 3 Days #6 tab 10/13/22 Fluticasone Nasal [place] [Flonase 1 spray EA NOSTRIL DAILY #16 gm 03/15/23 Nasal [place]] Allergies Allergy/AdvReac Type Severity Reaction Status Date / Time cephalexin [From Keflex] Allergy Rash/Hives Verified 03/15/23 14:05 kiwi Allergy Unknown Verified 03/15/23 14:05 steroid Allergy Anaphylaxis Uncoded 03/15/23 14:06 Review of Systems ROS Statement: Those systems with pertinent positive or pertinent negative responses have been documented in the HPI. ROS Other: All systems not noted in ROS Statement are negative. Past Medical History Past Medical History: Blood Disorder Additional Past Medical History / Comment(s): Anemia History of Any Multi-Drug Resistant Organisms: None Reported Past Surgical History: No Surgical Hx Reported Past Anesthesia/Blood Transfusion Reactions: No Reported Reaction Past Psychological History: No Psychological Hx Reported Smoking Status: Never smoker Past Alcohol Use History: Occasional Past Drug Use History: Marijuana - Past Family History Mother Family Medical History: No Reported History General Exam - General Exam Comments Initial Comments: GENERAL Patient is well-developed and well-nourished. Patient is in mild distress. EYES Patient's pupils are equal and round. Extraocular motion is intact ENT Throat is not erythematous is no swelling tonsils is no lymphadenopathy or anteriorly. Some cobblestone appearance the back of his throat consistent with postnasal drip SKIN Unremarkable NEURO The patient is alert and oriented 3 PYSCH Patient has normal interpersonal interactions. MUSCULOSKELETAL All 4 extremities have full range of motion Limitations: no limitations Course Vital Signs 03/15/23 14:02 Temperature 98.7 F Pulse Rate 62 Respiratory 16 Rate Blood Pressure 104/72 O2 Sat by Pulse 100 Oximetry Medical Decision Making - Medical Decision Making Was pt. sent in by a medical professional or institution (, [facility], [employer], urgent care, hospital, or fpc...) When possible be specific @ -No Did you speak to anyone other than the patient for history (EMS, parent, family, police, friend...)? What history was obtained from this source @ -No Did you review nursing and triage notes (agree or disagree)? Why? @ -I reviewed and agree with nursing and triage notes Were old charts reviewed (outside hosp., previous admission, EMS record, old EKG, old radiological studies, urgent care reports/EKG's, fpc records)? Report findings @ -No old charts were reviewed Differential Diagnosis (chest pain, altered mental status, abdominal pain women, abdominal pain men, vaginal bleeding, weakness, fever, dyspnea, syncope, headache, dizziness, GI bleed, back pain, seizure, CVA, palpatations, mental health, musculoskeletal)? @ -ALLERGIC rhinitis, viral syndrome, strep throat, mono this is not all inclusive list EKG interpreted by me (3pts min.). @ -As above X-rays interpreted by me (1pt min.). @ -None done CT interpreted by me (1pt min.). @ -None done U/S interpreted by me (1pt. min.). @ -None done What testing was considered but not performed or refused? (CT, X-rays, U/S, labs)? Why? @ -None What meds were considered but not given or refused? Why? @ -None Did you discuss the management of the patient with other professionals (pr ofessionals i.e. , PA, [employer] [place] [facility] [place] [facility], lab, RT, psych nurse, hospice social worker, cnp, teacher, public service officer, case coordinator)? Give summary @ -No Was smoking cessation discussed for >3mins.? @ -No Was critical care preformed (if so, how long)? @ -No Were there social determinants of health that impacted care today? How? (Homelessness, low income, unemployed, alcoholism, drug addiction, transportation, low edu. Level, literacy, decrease access to med. care, nursing home, rehab)? @ -No Was there de-escalation of care discussed even if they declined (Discuss DNR or withdrawal of care, Hospice)? DNR status @ -No What co-morbidities impacted this encounter? (DM, HTN, Smoking, COPD, CAD, Cancer, CVA, ARF, Chemo, Hep., AIDS, mental health diagnosis, sleep apnea, morbid obesity)? @ -None Was patient admitted / discharged? Hospital course, mention meds given and route, prescriptions, significant lab abnormalities, going to OR and other pertinent info. @ -Strep test is done and we will follow up with that if it comes back positive. Patient appears to be having a lot of postnasal drip either from ALLERGIES or viral origin. Patient states she will take some NyQuil at night some DayQuil during the day patient will also be given some Flonase to help with some nasal congestion Undiagnosed new problem with uncertain prognosis? @ -No Drug Therapy requiring intensive monitoring for toxicity (Heparin, Nitro, Insulin, Cardizem)? @ -No Were any procedures done? @ -No Diagnosis/symptom? @ -Upper respiratory infection Acute, or Chronic, or Acute on Chronic? @ -Acute Uncomplicated (without systemic symptoms) or Complicated (systemic symptoms)? @ -Uncomplicated Side effects of treatment? @ -No Exacerbation, Progression, or Severe Exacerbation? @ -No Poses a threat to life or bodily function? How? (Chest pain, [place], [place], pneumonia, PE, COPD, DKA, ARF, appy, cholecystitis, CVA, Diverticulitis, Homicidal, Suicidal, threat to staff... and all critical care pts) @ -No Disposition Clinical Impression: Upper respiratory infection Disposition: HOME SELF-CARE Condition: Good Prescriptions: Fluticasone Nasal [place] [Flonase Nasal [place]] 1 spray EA NOSTRIL DAILY #16 gm Is patient prescribed a controlled substance at d/c from ED?: No Referrals: Chandra Crowe MD [Primary Care Provider] - 1-2 days Time of Disposition: 16:00
[2023-03-15 16:34] VITALS: BP 99/66; PULSE 67; RESP 18; TEMP 99.3
== END 2023-03-15 16:38 | disposition home or self-care (01) ==
LOC: EC 13:40
DX: J06.9 Acute upper respiratory infection, unspecified (principal); F12.90 Cannabis use, unspecified, uncomplicated; Z91.018 Allergy to other foods; Z88.1 Allergy status to other antibiotic agents
CPT/HCPCS: 87651; 99283

== ENCOUNTER 2023-07-08 13:25 | Emergency (ER) | payer SELFPAY ==
[2023-07-08 13:38] VITALS: BP 127/80; PULSE 100; RESP 20; TEMP 97.6
--- NOTE | 2023-07-08 13:50 | ED ---
ENT HPI - General Source: patient, RN notes reviewed Mode of arrival: ambulatory Limitations: no limitations - History of Present Illness MD complaint: sore throat <Ely Brice - Last Filed: 07/08/23 13:48> <Pola Polk - Last Filed: 07/08/23 19:19> - General Chief complaint: ENT Stated complaint: Sore Throat Time Seen by Provider: 07/08/23 13:48 - History of Present Illness Initial comments: This is a 23 year old female who presents to the emergency department for a sore throat. States that her throat looks red with white spots. Denies any other URI symptoms. She also feels like she has fevers/chills. Denies any sick contacts. (Ely Brice) 23-year-old female presenting with chief complaint of sore throat. States that symptoms have been ongoing for a few days. She admits to nasal congestion. Patient states that she feels feverish but has not checked her temperature. No difficulty breathing or swallowing. No cough, difficulty breathing, chest pain, nausea, vomiting, abdominal pain. (Pola Polk) - Related Data Previous Rx's Medication Instructions Recorded Albuterol Sulfate [Proair Hfa] 1 - 2 puff INHALATION Q6HR PRN 10/18/21 #8.5 gm guaiFENesin-DM 600/30MG [Mucinex 2 each PO Q12HR PRN #20 tab 10/18/21 Dm] predniSONE 50 mg PO DAILY #5 tablet 10/18/21 Dicyclomine [Bentyl] 20 mg PO QID #12 tablet 10/30/21 Ciprofloxacin HCl [Cipro] 250 mg PO Q12HR 3 Days #6 tab 10/13/22 Fluticasone Nasal [place] [Flonase 1 spray EA NOSTRIL DAILY #16 gm 03/15/23 Nasal [place]] Allergies Allergy/AdvReac Type Severity Reaction Status Date / Time cephalexin [From Keflex] Allergy Rash/Hives Verified 03/15/23 14:05 kiwi Allergy Unknown Verified 03/15/23 14:05 steroid Allergy Anaphylaxis Uncoded 03/15/23 14:06 Review of Systems ROS Other: All systems not noted in ROS Statement are negative. <Ely Brice - Last Filed: 07/08/23 13:48> ROS Other: All systems not noted in ROS Statement are negative. <Pola Polk - Last Filed: 07/08/23 19:19> ROS Statement: Those systems with pertinent positive or pertinent negative responses have been documented in the HPI. Past Medical History Past Medical History: Blood Disorder Additional Past Medical History / Comment(s): Anemia History of Any Multi-Drug Resistant Organisms: None Reported Past Surgical History: No Surgical Hx Reported Past Anesthesia/Blood Transfusion Reactions: No Reported Reaction Past Psychological History: No Psychological Hx Reported Smoking Status: Never smoker Past Alcohol Use History: Occasional Past Drug Use History: Marijuana - Past Family History Mother Family Medical History: No Reported History <Ely Brice - Last Filed: 07/08/23 13:48> General Exam Limitations: no limitations <Ely Brice - Last Filed: 07/08/23 13:48> Limitations: no limitations General appearance: alert, in no apparent distress Head exam: Present: atraumatic, normocephalic, normal inspection Eye exam: Present: normal appearance, EOMI ENT exam: Present: normal exam, normal oropharynx (Postnasal drip noted), mucous membranes moist, TM's normal bilaterally Neck exam: Present: normal inspection, full ROM. Absent: lymphadenopathy Respiratory exam: Present: normal lung sounds bilaterally. Absent: respiratory distress, wheezes, rales, rhonchi, stridor Cardiovascular Exam: Present: regular rate, normal rhythm, normal heart sounds. Absent: systolic murmur, diastolic murmur, rubs, gallop, clicks Neurological exam: Present: alert, oriented X3 Psychiatric exam: Present: normal affect, normal mood Skin exam: Present: warm, dry, intact, normal color. Absent: rash <Pola Polk - Last Filed: 07/08/23 19:19> - General Exam Comments Initial Comments: Visual Physical Exam Vital signs reviewed General: Well-appearing, nontoxic, no acute distress. Head: Normocephalic, atraumatic Eyes: PERRLA, EOMI ENT: Airway patent Chest: Nonlabored breathing Skin: No visual rash, normal skin tone Neuro: Alert and oriented 3 Musculoskeletal: No gross abnormalities I performed the QuickNote portion of this chart. Signed Ely Brice PA-C. (Ely Brice) Course Vital Signs 10/08/23 13:30 Temperature 97.6 F Pulse Rate 100 Respiratory 20 Rate Blood Pressure 127/80 O2 Sat by Pulse 98 Oximetry Medical Decision Making <Pola Polk - Last Filed: 07/08/23 19:19> - Medical Decision Making Was pt. sent in by a medical professional or institution ([facility] Velas[facility], [employer], urgent care, hospital, or [facility]...) When possible be specific @ -No Did you speak to anyone other than the patient for history (EMS, parent, family, police, friend...)? What history was obtained from this source @ -No Did you review nursing and triage notes (agree or disagree)? Why? @ -I reviewed and agree with nursing and triage notes Were old charts reviewed (outside hosp., previous admission, EMS record, old EKG, old radiological studies, urgent care reports/EKG's, [facility] records)? Report findings @ -No old charts were reviewed Differential Diagnosis (chest pain, altered mental status, abdominal pain women, abdominal pain men, vaginal bleeding, weakness, fever, dyspnea, syncope, headache, dizziness, GI bleed, back pain, seizure, CVA, palpatations, mental health, musculoskeletal)? @ -Differential includes viral pharyngitis, group A strep, mononucleosis this is not an all inclusive list EKG interpreted by me (3pts min.). @ -As above X-rays interpreted by me (1pt min.). @ -None done CT interpreted by me (1pt min.). @ -None done U/S interpreted by me (1pt. min.). @ -None done What testing was considered but not performed or refused? (CT, X-rays, U/S, labs)? Why? @ -None What meds were considered but not given or refused? Why? @ -None Did you discuss the management of the patient with other professionals (bethany mazariegos i.e. [facility] Velasquez, FINANCE OFFICER, lab, RT, psych nurse, high school social studies teacher, switch inspector, teacher, bank officer, rn case manager)? Give summary @ -No Was smoking cessation discussed for >3mins.? @ -No Was critical care preformed (if so, how long)? @ -No Were there social determinants of health that impacted care today? How? (Homelessness, low income, unemployed, alcoholism, drug addiction, transportation, low edu. Level, literacy, decrease access to med. care, detention, rehab)? @ -No Was there de-escalation of care discussed even if they declined (Discuss DNR or withdrawal of care, Hospice)? DNR status @ -No What co-morbidities impacted this encounter? (DM, HTN, Smoking, COPD, CAD, Cancer, CVA, ARF, Chemo, Hep., AIDS, mental health diagnosis, sleep apnea, morbid obesity)? @ -None Was patient admitted / discharged? Hospital course, mention meds given and route, prescriptions, significant lab abnormalities, going to OR and other pertinent info. @ -23-year-old female presenting with chief complaint of sore throat. Physical examination is conducted. She is negative for influenza, RSV, Covid, group A strep. She is educated on supportive management of viral pharyngitis. Follow-up with PCP. Report back to ER with any new or worsening symptoms. Discussed return parameters and answered all questions. Patient conveyed verbal understanding and agreed to the plan. I discussed this case in detail with my attending Dr. Cunningham Undiagnosed new problem with uncertain prognosis? @ -No Drug Therapy requiring intensive monitoring for toxicity (Heparin, Nitro, Insulin, Cardizem)? @ -No Were any procedures done? @ -No Diagnosis/symptom? @ -Pharyngitis Acute, or Chronic, or Acute on Chronic? @ -Acute Uncomplicated (without systemic symptoms) or Complicated (systemic symptoms)? @ -Uncomplicated Side effects of treatment? @ -No Exacerbation, Progression, or Severe Exacerbation? @ -No Poses a threat to life or bodily function? How? (Chest pain, [place], [place], pneumonia, PE, COPD, DKA, ARF, appy, cholecystitis, CVA, Diverticulitis, Homicidal, Suicidal, threat to staff... and all critical care pts) @ -No (Pola Polk) - Lab Data Lab Results 07/08/23 07/08/23 Range/Units 13:30 13:30 Influenza Type A (PCR) Not Detected (Not Detectd) Influenza Type B (PCR) Not Detected (Not Detectd) RSV (PCR) Not Detected (Not Detectd) SARS-CoV-2 (PCR) Not Detected (Not Detectd) Group A Strep (PCR) NOT DETECTED (Not Detectd) Disposition <Ely Brice - Last Filed: 07/08/23 13:48> Is patient prescribed a controlled substance at d/c from ED?: No Time of Disposition: 16:30 <Pola Polk - Last Filed: 07/08/23 19:19> Clinical Impression: Acute viral pharyngitis Disposition: HOME SELF-CARE Condition: Good Instructions (If sedation given, give patient instructions): Pharyngitis (ED) Additional Instructions: Follow-up with PCP. Report back to ER with any new or worsening symptoms. Referrals: Chandra Crowe MD [Primary Care Provider] - 1-2 days
== END 2023-07-08 16:49 | disposition home or self-care (01) ==
LOC: EC 13:25
DX: J02.8 Acute pharyngitis due to other specified organisms (principal); B97.89 Other viral agents as the cause of diseases classified elsewhere; F12.90 Cannabis use, unspecified, uncomplicated; Z20.822 Contact with and (suspected) exposure to COVID-19; Z88.1 Allergy status to other antibiotic agents; Z88.8 Allergy status to other drugs, medicaments and biological substances; Z91.018 Allergy to other foods
CPT/HCPCS: 87636; 87651; 99282